=== PATIENT | female | born 1965 | race African-American/Black ===

== ENCOUNTER 2019-11-09 10:13 | Emergency (ER) | payer SELFPAY ==
[2019-11-09 11:18] LABS: Absolute Lymphocytes (CBC) 1.9 K/uL (0.7-4.9); Basophils % 0.7 % (0-1.3); Hematocrit 39.6 % (36.0-45.0); Lymphocytes % 35.8 % (15.3-44.8); MPV 9.7 fL (7.6-11.3); RBC Red Blood Cell Count 4.36 M/uL (3.86-4.86)
[2019-11-09 11:20] LABS: Protime INR 0.91
[2019-11-09 11:25] LABS: ALT/SGPT 18 U/L (12-78); AST/SGOT 15 U/L (15-37); Albumin 3.4 g/dL (3.4-5.0); Alkaline Phosphatase 134 U/L (45-117); BUN Blood Urea Nitrogen 13 mg/dL (7-18); Bicarbonate 28 mmol/L (21-32); Bilirubin Direct 0.1 mg/dL (0-0.2); Bilirubin Total 0.5 mg/dL (0.2-1.0); Glucose Level 104 mg/dL (74-106); Potassium 3.9 mmol/L (3.5-5.1); Protein, Total 7.3 g/dL (6.4-8.2); Sodium Level 144 mmol/L (136-145)
[2019-11-09] MEDS ORDERED: LORazepam 2 MG/ML VIAL ONE (11:42)
[2019-11-09] MEDS ORDERED: lisinopriL 10 MG TAB ONE (12:10)
[2019-11-09 13:28] LABS: Barbiturates NEGATIVE (NEGATIVE); Benzodiazepines NEGATIVE (NEGATIVE); Cocaine POSITIVE (NEGATIVE); METHAMPHETAM NEGATIVE (NEGATIVE); Methadone NEGATIVE (NEGATIVE); Opiates NEGATIVE (NEGATIVE); Phencyclidine NEGATIVE (NEGATIVE); THC Cannibis NEGATIVE (NEGATIVE)
[2019-11-09 14:03] LABS: Urine Blood NEGATIVE (NEG); Urine Glucose NEGATIVE (NEG); Urine Protein NEGATIVE (NEG)
--- NOTE | 2019-11-09 17:04 | ER ---
Nurse's Notes [facility] Sandip Name: Howard Clarke Age: 54 yrs Sex: Female : 1965 Arrival Date: 11/09/2019 Time: 10:16 Bed 17 Private MD: Diagnosis: Suicidal ideations Presentation: 11/08 10:41 Chief complaint: Patient states: " My fiance 2 days ago and I didn't find ph out until yesterday. I'm having a hard time dealing with it and I just want to go be with him." Pt tearful and cooperative, reports that her plan is to overdose on pills and not wake up, also states that she did have near attempt approx 5 years ago when her mother , was planning to take pills then as well. Coronavirus screen: Patient denies a cough. Patient denies shortness of breath or difficulty breathing. Patient denies measured and/or subjective temperature greater than 100.4F prior to today's visit. Patient denies travel on a cruise ship or to a country the [facility] currently lists as an affected area. Patient denies contact with known and/or suspected case of COVID-19. Ebola Screen: No symptoms or risks identified at this time. Initial Sepsis Screen: Does the patient meet any 2 criteria? No. Patient's initial sepsis screen is negative. Does the patient have a suspected source of infection? No. Patient's initial sepsis screen is negative. Risk Assessment: Do you want to hurt yourself or someone else? Patient reports desire/thoughts of hurting themselves or someone else. Provider notified. Onset of symptoms was November 09, 2019. 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 - Social history:: Smoking status: Patient denies any tobacco usage or history of. Patient uses alcohol, occasionally. last drank beer last night. street drugs, cocaine. Screenin:47 Abuse screen: Denies threats or abuse. Denies injuries from another. Nutritional ph screening: No deficits noted. Tuberculosis screening: No symptoms or risk factors identified. Fall Risk None identified. Assessment: 10:30 General: Appears in no apparent distress. Behavior is cooperative, crying. Pain: Denies ah pain. Neuro: Level of Consciousness is awake, alert, obeys commands, Oriented to person, place, time, situation. Cardiovascular: Heart tones S1 S2 present Capillary refill < 3 seconds Patient's skin is warm and dry. Respiratory: Airway is patent Respiratory effort is even, unlabored, Respiratory pattern is regular, symmetrical, Breath sounds are clear bilaterally. GI: No signs and/or symptoms were reported involving the gastrointestinal system. Abdomen is obese, Bowel sounds present X 4 quads. : No signs and/or symptoms were reported regarding the genitourinary system. EENT: No signs and/or symptoms were reported regarding the EENT system. Derm: No signs and/or symptoms reported regarding the dermatologic system. Musculoskeletal: No signs and/or symptoms reported regarding the musculoskeletal system. 12:06 Reassessment: Pt given lisinopril per order. Pt sitting on side of the bed, tray given ah to pt. 13:00 Reassessment: Pt walked to the bathroom with tech and was able to give urine sample. ah 13:57 Reassessment: pt ate and has tolerated medication with no problem. Blood pressure is ah coming down. Pt is asymptomatic.185/95. 14:14 Reassessment: Spoke with Beatriz at [facility] whom states that all psych beds ss are at capacity. 15:00 Reassessment: Patient and/or family updated on plan of care and expected duration. Pain ah level reassessed. pt lying in bed with eyes closed and resp even and unlabored. No distress noted. No needs voiced at this time. 16:00 Reassessment: No changes from previously documented assessment. 17:00 Reassessment: Tray provided to Pt. Pt sat on side of bed and ate her food. No needs ah voiced at this time. Awaiting acceptance at this time. 18:00 Reassessment: No distress noted. Pt lying in bed with eyes closed and resp even and ah unlabored. No needs voiced at this time. 19:00 Reassessment: No changes from previously documented assessment. ah 20:36 Reassessment: No changes from previously documented assessment. Patient and/or family ah updated on plan of care and expected duration. Pain level reassessed. Pt continues to sleep with eyes closed and resp even and unlabored. Continue to await acceptance to another facility with psych services. 22:00 Reassessment: Patient appears in no apparent distress at this time. Patient and/or vc family updated on plan of care and expected duration. Pain level reassessed. Patient laying on right side with eyes closed. Chest rising and falling equally. 23:00 Reassessment: Patient appears in no apparent distress at this time. Patient and/or vc family updated on plan of care and expected duration. Pain level reassessed. Patient laying on her back with eyes closed, chest rising and falling equally, patient resting comfortably. 11/09 00:00 Reassessment: Patient appears in no apparent distress at this time. Patient and/or vc family updated on plan of care and expected duration. Pain level reassessed. 01:19 Reassessment: Patient appears in no apparent distress at this time. Patient and/or vc family updated on plan of care and expected duration. Pain level reassessed. Patient is alert, oriented x 3, equal unlabored respirations, skin warm/dry/pink. patient ambulated to bathroom. 01:51 Reassessment: Patient sitting up in bed eating a sandwich and drinking a soda. vc 02:07 Reassessment: Patient appears in no apparent distress at this time. pt quiet, resting sg in bed with eyes open, even unlabored respirations observed at this time, a [facility] is with pt for safety per hospital policy. 03:00 Reassessment: Patient appears in no apparent distress at this time. Patient and/or sg family updated on plan of care and expected duration. Pain level reassessed. 04:00 Reassessment: Patient appears in no apparent distress at this time. Patient and/or sg family updated on plan of care and expected duration. Pain level reassessed. 05:00 Reassessment: Patient appears in no apparent distress at this time. Patient is alert, sg oriented x 3, equal unlabored respirations, skin warm/dry/pink. 06:00 Reassessment: this pt continues to wait for a transfer to a psych facility, reports sg sleeping well throughout the night, feeling well rested today, but still has plans to harm herself at this time. 06:39 Reassessment: Patient appears in no apparent distress at this time. pt updated on sg transfer status, still pending, informed a diet tray has been ordered for breakfast, pt stated understanding, will continue to monitor. 08:00 Reassessment: Patient appears in no apparent distress at this time. Patient and/or em family updated on plan of care and expected duration. Pain level reassessed. pt awake and does not have any needs at this time. 13:29 Reassessment: Patient appears in no apparent distress at this time. Patient and/or em family updated on plan of care and expected duration. Pain level reassessed. Patient is alert, oriented x 3, equal unlabored respirations, skin warm/dry/pink. eating lunch tray, tolerated well. 14:46 Reassessment: pt restless and hearing voices that are telling her things, Dr. Montes em notified, [facility] notified and request medication list. 15:15 Reassessment: pt wants to add her aunt Lynette Gongora - [phone] to contact em information, registration staff notified. 15:20 Reassessment: pt facetimed with [facility] screener, states she recommends inpatient, em provider notified. 17:45 Reassessment: Patient appears in no apparent distress at this time. Patient and/or em family updated on plan of care and expected duration. Pain level reassessed. Patient is alert, oriented x 3, equal unlabored respirations, skin warm/dry/pink. 19:45 Reassessment: Patient appears in no apparent distress at this time. Patient and/or mg2 family updated on plan of care and expected duration. Pain level reassessed. Patient is alert, oriented x 3, equal unlabored respirations, skin warm/dry/pink. 20:45 Reassessment: Patient appears in no apparent distress at this time. mg2 21:46 Reassessment: sitter at bedside. inpatient bed provided. mg2 22:50 Reassessment: Patient appears in no apparent distress at this time. patient sleeping. rv sitter at bedside. 23:55 Reassessment: Patient appears in no apparent distress at this time. rv 11/10 00:56 Reassessment: Patient appears in no apparent distress at this time. sitter at bedside. mg2 01:40 Reassessment: report given to Manish of [facility]. patient informed about the mg2 plan. 03:12 Reassessment: report given to EMS. patient in good condition,. iv out. patient in mg2 good condition. Psych: 11/08 10:52 Subjective: Patient's mood is sad, hopeless, Delusions are denied, Hallucinations are ph denied Having thoughts of suicide. Plan for suicide is overdose on pills. Objective: Patient is cooperative, Speech is normal, Affect is appropriate. Interventions: Removed personal items and placed in bag. Patient placed in hospital gown. Urine collected and sent for urine drug test. Belonging list filled out. Suicide Risk Assessment: Sad Person Scale: Sex of patient: Female: Score 0 points. Age of patient: Score 0 point if patient falls outside of specified age parameters. Depression: Score 1 point if signs of depression are present. Previous Attempt: Score 1 point if patient has previously attempted suicide. Substance Abuse: Score 1 point if patient abuses alcohol or drugs. Rational Thinking: Score 0 point if patient has rational thinking. Social Support: Score 1 point if social support is lacking and/or unavailable. Organized Plan: Score 1 point if patient had a plan in place. Relationship: Score 1 point if patient is , , , or for a single male Chronic Sickness: Score 0 point if patient does not have a chronic illness, debilitating, or severe disorder. TOTAL POINTS: If total points are 5-6, proposed clinical action is to strongly consider hospitalization, depending upon confidence in the follow-up arrangement. Implement suicide precautions. Safety Checks: Personal items have been removed. Door is open. Patient uses of beer, " a couple times a week" Last use was last night. Patient does not have a history of DTs. Patient uses cocaine, Last use was last night. Commitment: Patient will be a voluntary commitment. Vital Signs: 10:41 BP 192 / 124; Pulse 71; Resp 18; Temp 98.5; Pulse Ox 98% on R/A; Weight 70.31 kg; ph Height 5 ft. 1 in. (154.94 cm); 11:59 BP 183 / 123; ah 12:30 BP 165 / 99; ah 14:21 BP 140 / 80; Pulse 90; Resp 16; Temp 97.6(O); Pulse Ox 100% ; lt1 15:48 BP 129 / 94; ah 20:39 BP 135 / 63; Pulse 73; Resp 15; Pulse Ox 100% ; ah 11/09 00:00 BP 115 / 77; Pulse 78; Resp 16; Pulse Ox 100% on R/A; sg 04:00 BP 132 / 66; Pulse 72; Resp 16; Temp 97.6; Pulse Ox 100% on R/A; sg 08:02 BP 185 / 110; Pulse 74; Resp 16; Pulse Ox 100% on R/A; dh3 08:06 Temp 98.2(O); dh3 15:14 BP 163 / 103; em 04 01:36 BP 159 / 96; Pulse 76; Resp 18; Temp 98.4; Pulse Ox 100% on R/A; mg2 11/08 10:41 Body Mass Index 29.29 (70.31 kg, 154.94 cm) ph ED Course: 11/08 10:16 Patient arrived in ED. am2 10:18 Guido Mann PA is PHCP. [facility] 10:19 Abel West MD is Attending Physician. jmm 10:47 Triage completed. ph 10:50 Arm band placed on Patient placed in an exam room. ph 10:55 Patient has correct armband on for positive identification. Placed in gown. Bed in low ph position. Call light in reach. Side rails up X 1. Noise minimized. Warm blanket given. Verbal reassurance given. 10:58 Initial lab(s) drawn, by ne, sent to lab. Inserted saline lock: 22 gauge in right dh3 antecubital area, using aseptic technique. Blood collected. 11:02 EKG done, by wet process technician. reviewed by Guido VASQUEZ. at1 11:26 Elisha Calderón, RN is Primary Nurse. ph 13:47 faxed patient records to the following facilities in attempt to transfer the patient; [facility], [facility], [facility] ; [facility]; [facility]; [facility] [place]; [facility], [facility], [facility], [facility]. 17:36 PHCP role handed off by Guido Mann PA cp 17:36 Chito Knutson PA is PHCP. cp 19:28 Primary Nurse role handed off by Elisha Calderón RN sg 20:31 Heike Mcdaniel RN is Primary Nurse. 11/09 02:06 Primary Nurse role handed off by Heike Mcdaniel RN sg 02:06 Jhonatan Gomez RN is Primary Nurse. sg 02:06 Report received from Joan Arvizu RN. sg 04:26 Attending Physician role handed off by Abel West MD michelle 04:26 Chito Franco MD is Attending Physician. michelle 10:11 Attending Physician role handed off by Chito Franco MD kdr 10:11 Moshe Montes MD is Attending Physician. kdr 10:22 Primary Nurse role handed off by Jhonatan Gomez RN dmKatty 11:08 Ward Mcguire RN is Primary Nurse. em 23:05 refaxed patients record to [facility] facility. ar5 23:30 Called [facility] to confirm that the facility received the clinical's. facility ar5 confirmed and chart is up for review. 11/10 00:56 No provider procedures requiring assistance completed. mg2 01:28 [facility] called to do a nurse to nurse. Teodora Scott is taking report. ar5 03:11 IV discontinued, intact, bleeding controlled, No redness/swelling at site. Pressure mg2 dressing applied. Administered Medications: 11/08 11:45 Drug: Ativan 1 mg Route: IVP; Site: right antecubital; ah 12:45 Follow up: Response: No adverse reaction ah 17:35 Follow up: Response: No adverse reaction; Blood pressure is lowered ah 12:06 Drug: Lisinopril 10 mg Route: PO; ah 20:38 Follow up: Response: No adverse reaction 11/09 14:55 Drug: Valium 2 mg Route: PO; em 16:00 Follow up: Response: No adverse reaction; Marked relief of symptoms em Outcome: 11/08 17:02 ER care complete, transfer ordered by . angelina 11/10 03:11 Transferred by ground EMS to other acute care facility: [facility]. Transfer mg2 form completed. Condition: stable Instructed on the need for transfer, Demonstrated understanding of instructions. 03:14 Patient left the ED. mg2 Signatures: Mayra Saucedo RN RN dm5 Jhonatan Gomez RN Chito Andrade MD MD cha Rittger, Kevin, MD MD [facility] Guido Mann PA PA jmm Munoz, Edgar, RN SANGITA em Brianna Estrada RN RN Rehana Casey, liaison planner EKG Tat1 Elisha Calderón RN RN ph Zenia, CHRISTINA Dale cp Gordon, Rehana am2 Hansa Malodnado 3 Eden Wilkins Michele, RN RN [facility] [address] RN SANGITA Jennie Austin ar Vero Reynoso 1 Joan Arvizu RN RN vc Harris, Amy RN SANGITA Corrections: (The following items were deleted from the chart) 11/08 10:47 10:41 BP 162 / 124; Pulse 71bpm; Resp 18bpm; Pulse Ox 98% RA; Temp 98.5F; 70.31 kg; ph Height 5 ft. 1 in.; BMI: 29.2; ph 11/10 02:14 11/09 23:05 rexed patients record to [facility] ar5 ar5
--- NOTE | 2019-11-09 17:04 | EDPHYS ---
Physician Documentation [facility] Name: Howard Clarke Age: 54 yrs Sex: Female : 1965 Arrival Date: 11/09/2019 Time: 10:16 Bed 17 Private MD: ED Physician Moshe Montes HPI: 11/08 10:55 This 54 yrs old Black Female presents to ER via Ambulatory with complaints of Suicidal jmm Ideation. 10:55 The patient presents to the emergency department with suicide ideation, and the patient jmm has a plan, to overdose with medications. Onset: The symptoms/episode began/occurred today. 10:58 Past psychiatric history: Psychiatric medications include: Zoloft, risperidal, jmm trazadone. Associated signs and symptoms: Pertinent negatives: fever. This is a 54 year old female with a history of bipolar disorder, depression, HTN that presents to the ED with Suicidal ideation and plan to ingest all her rx pills. Patient states she learned yesterday her fiance had . Patient admits to ingesting cocaine and etoh last night but states she does used cocaine or etoh regularly. Patient is a patient of [facility] and was advised to go to the ED. . 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 - Social history:: Smoking status: Patient denies any tobacco usage or history of. Patient uses alcohol, occasionally. last drank beer last night. street drugs, cocaine. ROS: 10:58 Constitutional: Negative for fever, chills, and weight loss, Cardiovascular: Negative jmm for chest pain, palpitations, and edema, Respiratory: Negative for shortness of breath, cough, wheezing, and pleuritic chest pain. 10:58 Psych: Positive for anxiety, depression, drug dependence, suicidal ideation. 10:58 All other systems are negative. Exam: 10:58 Head/Face: atraumatic. Eyes: EOMI, no conjunctival erythema appreciated ENT: Moist [facility] Mucus Membranes Neck: Trachea midline, Supple Chest/axilla: Normal chest wall appearance and motion. Cardiovascular: Regular rate and rhythm. No edema appreciated Respiratory: Normal respirations, no respiratory distress appreciated Abdomen/GI: Non distended, soft 10:58 Back: Normal ROM Skin: General appearance color normal MS/ Extremity: Moves all extremities, no obvious deformities appreciated, no edema noted to the lower extremities Neuro: Awake and alert, normal gait 10:58 Constitutional: The patient appears alert, awake, anxious. 10:58 Psych: Behavior/mood is pleasant, cooperative, anxious, suicidal. Vital Signs: 10:41 BP 192 / 124; Pulse 71; Resp 18; Temp 98.5; Pulse Ox 98% on R/A; Weight 70.31 kg; ph Height 5 ft. 1 in. (154.94 cm); 11:59 BP 183 / 123; ah 12:30 BP 165 / 99; ah 14:21 BP 140 / 80; Pulse 90; Resp 16; Temp 97.6(O); Pulse Ox 100% ; lt1 15:48 BP 129 / 94; ah 20:39 BP 135 / 63; Pulse 73; Resp 15; Pulse Ox 100% ; ah 11/09 00:00 BP 115 / 77; Pulse 78; Resp 16; Pulse Ox 100% on R/A; sg 04:00 BP 132 / 66; Pulse 72; Resp 16; Temp 97.6; Pulse Ox 100% on R/A; sg 08:02 BP 185 / 110; Pulse 74; Resp 16; Pulse Ox 100% on R/A; dh3 08:06 Temp 98.2(O); dh3 15:14 BP 163 / 103; em 11/10 01:36 BP 159 / 96; Pulse 76; Resp 18; Temp 98.4; Pulse Ox 100% on R/A; mg2 11/08 10:41 Body Mass Index 29.29 (70.31 kg, 154.94 cm) ph MDM: 11/08 10:36 Patient medically screened. [facility] 17:02 Data reviewed: vital signs, nurses notes. Counseling: I had a detailed discussion with [facility] the patient and/or guardian regarding: the historical points, exam findings, and any diagnostic results supporting the discharge/admit diagnosis, the need to transfer to another facility, for higher level of care, [facility] does not immediately have the required specialist. 11/08 10:36 Order name: Acetaminophen; Complete Time: 11:26 [facility] 11/08 10:36 Order name: Basic Metabolic Panel; Complete Time: 11:26 [facility] 11/08 10:36 Order name: CBC with Diff; Complete Time: 11:24 [facility] 11/08 10:36 Order name: ETOH Level; Complete Time: 11:24 [facility] 11/08 10:36 Order name: Hepatic Function; Complete Time: 11:26 [facility] 11/08 10:36 Order name: PT-INR; Complete Time: 11:24 [facility] 11/08 10:36 Order name: Ptt, Activated; Complete Time: 11:24 [facility] 11/08 10:36 Order name: Salicylate; Complete Time: 11:40 [facility] 11/08 10:36 Order name: Urine Drug Screen; Complete Time: 13:43 [facility] 11/08 11:58 Order name: Troponin (emerg Dept Use Only); Complete Time: 12:22 [facility] 11/08 13:07 Order name: Urine Dipstick--Ancillary (enter results); Complete Time: 14:28 11/08 13:07 Order name: Urine --Ancillary (enter results); Complete Time: 14:28 11/08 10:36 Order name: EKG; Complete Time: 10:37 [facility] 11/08 10:36 Order name: EKG - Nurse/Tech; Complete Time: 10:58 [facility] 11/08 10:36 Order name: IV Saline Lock; Complete Time: 10:58 [facility] 11/08 10:36 Order name: Labs collected and sent; Complete Time: 10:58 [facility] 11/08 10:36 Order name: Urine Dipstick-Ancillary (obtain specimen); Complete Time: 22:00 [facility] 11/08 10:59 Order name: Diet Finger Food; Complete Time: 10:59 ph 11/09 06:25 Order name: Diet Finger Food: breakfast tray; Complete Time: 06:27 mw2 11/09 11:11 Order name: Diet Finger Food; Complete Time: 11:12 dh3 11/09 15:35 Order name: Diet Finger Food; Complete Time: 15:36 dh3 Administered Medications: 11:45 Drug: Ativan 1 mg Route: IVP; Site: right antecubital; 12:45 Follow up: Response: No adverse reaction ah 17:35 Follow up: Response: No adverse reaction; Blood pressure is lowered ah 12:06 Drug: Lisinopril 10 mg Route: PO; ah 20:38 Follow up: Response: No adverse reaction 11/09 14:55 Drug: Valium 2 mg Route: PO; em 16:00 Follow up: Response: No adverse reaction; Marked relief of symptoms em Disposition: 11/09/19 17:02 Transfer ordered to Psych Facility. Diagnosis is Suicidal ideations. - Reason for transfer: Higher level of care. - Accepting physician is DR Arevalo. - Condition is Stable. - Problem is new. - Symptoms are unchanged. Addendum: 11/14/2019 09:58 Co-signature as Attending Physician, Moshe Montes MD I agree with the assessment and k dr plan of care. Signatures: Dispatcher [employer] EDMoshe Romero MD MD [facility] Guido Mann PA PA [facility] Ward Mcguire RN RN Elisha Calderón RN RN Chito Knutson PA PA Cameron Garrett RN RN [facility] Heike Mcdaniel RN RN Corrections: (The following items were deleted from the chart) 11/08 11:12 10:58 This is a 54 year old female with a history of bipolar disorder, depression, HTN [facility] that presents to the ED with Suicidal ideation and plan to ingest all her rx pills. Patient states she learned yesterday her had . Patient is a patient of [facility] and was advised to go to the ED. . [facility] 11/10 02:51 11/08 17:02 11/09/2019 17:02 Transfer ordered to Psych Facility. Diagnosis is Suicidal cp ideations. Reason for transfer: Higher level of care. Accepting physician is Psychiatry. Condition is Stable. Problem is new. Symptoms are unchanged. [facility] 11/10 03:14 02:51 11/09/2019 17:02 Transfer ordered to Psych Facility. Diagnosis is Suicidal mg2 ideations. Reason for transfer: Higher level of care. Accepting physician is DR Arevalo. Condition is Stable. Problem is new. Symptoms are unchanged. cp
[2019-11-10] MEDS ORDERED: METHYLPREDNISOLONE 125 MG INJ ONE (02:08)
[2019-11-10] MEDS ORDERED: NA CHLORIDE 0.9% 1,000 ML ONE (02:09)
[2019-11-10] MEDS ORDERED: IPRATROPIUM BROM 0.5MG/2.5ML ONE (02:09)
[2019-11-10] MEDS ORDERED: Levofloxacin500mg IV 500 MG/100 ML BAG IV ONE (02:09)
[2019-11-10] MEDS ORDERED: LEVALBUTEROL 1.25 MG/3 ML NEB ONE (02:09)
[2019-11-10] MEDS ORDERED: FAMOTIDINE 20 MG/2 ML VIAL IV ONE (02:09)
--- NOTE | 2019-11-10 12:05 | EKG ---
Test Date: 2019-11-09 Test Time: 10:47:37 Engine Repairer Service: GWEN Joseph MEASUREMENT RESULTS: Intervals: Rate: 64 RI: 132 QRSD: 92 QT: 408 QTc: 420 [place]: P: 14 RI: 132 QRS: 59 T: 80 INTERPRETIVE STATEMENTS: Normal sinus rhythm Normal ECG Compared to ECG 11/06/2014 14:26:55 Sinus bradycardia no longer present Left ventricular hypertrophy no longer present ST (T wave) deviation no longer present Electronically Signed On 11-10-19 12:03:04 CDT by Tim Sparks
[2019-11-10] MEDS ORDERED: DIAZEPAM 2 MG TABLET ONE (14:58)
[2019-11-11 03:39] VITALS: O2SAT 100
[2019-11-11 03:49] VITALS: BP 159/96; TEMP 98.4
== END 2019-11-11 03:14 ==
LOC: ER 10:13
DX: R45.851 Suicidal ideations (principal); F31.9 Bipolar disorder, unspecified; I10 Essential (primary) hypertension
CPT/HCPCS: 36415; 80048; 80076; 80307; 80320; 80329; 81003; 81025; 84484; 85025; 85610; 85730; 93005; 96374; 99285

== ENCOUNTER 2020-03-07 14:14 | Emergency (ER) | payer SELFPAY, OTHER ==
--- OUTSIDE RECORDS SUMMARY | 2020-03-07 14:48 | XMS REPORT | Continuity of Care Document ---
:1965 Author Organization [facility] t Address [address] [place] [address] Care Team Providers Name Role Phone Unavailable Unavailable Unavailable Problems This patient has no known problems. Allergies, Adverse Reactions, Alerts This patient has no known allergies or adverse reactions. Medications This patient has no known medications. Procedures This patient has no known procedures. Results Test Description Test Time Test Comments Results Result Comments Source RPR Qualitative 2019-11-13 17:29:09 Test Item Value Reference Range Interpretation Comme nts RPR Qual (test code = RPR Qual) Non-Reactive Non-Reactive Reactive Control (test code = Reactive Control) Reactive Weak Reactive Control (test code = Weak Reactive Weak Reactive Control) Non-Reactive Control (test code = Non-Reactive Non-Reactive Control) Lot # (test code = Lot #) [id number] N Expiration Dt (test code = Expiration Dt) 1231.20 N Lipid [id number] 07:45:20 Test Item Value Reference Range Interpretation Comments Cholesterol Total 173 mg/dL 0-200 RISK OF HE ART (test code = DISEASEPublishe d by Cholesterol Total) [place] [employer] Елена lyte Optimal Borderl ine Increased RiskC HOL <200 200-239 >2 40TRIG <150 150-199 >2 00HDL Male >60 <40H DL Female >60 <5 0LDL <100 130-159 >1 60LDL Near optimal is 100-129 Triglycerides (test 105 mg/dL 9-200 code = Triglycerides) HDL (test code = HDL) 55 mg/dL 50-60 LDL (test code = LDL) 97 mg/dL 0-130 The eq uation being used in this calcula tion is LDL = (Chol - H DL) - (Trig / 5) VLDL (test code = 21 mg/dL 5-40 The equati on being used VLDL) in this calcula tion is VLDL = Trig / 5 Chol/HDL (test code = 3.1 ratio 0.0-4.4 Chol/HDL) LDL/HDL Ratio (test 2 N The equa tion being used code = LDL/HDL Ratio) in thi s calculation is LDL/HDL Ratio=L DL Calc/HDL Chol Thyroid Stimulating [id number] 07:45:20 Test Item Value Reference Range Interpretation Comments TSH (test code = TSH) 1.250 mIU/mL 0.270-4.200 Hemoglobin [id number] 07:01:24 Test Item Value Reference Range Interpretation Comments Hemoglobin A1c (test code 5.5 % 4.8-5.9 No n Diabetic = Hemoglobin A1c) 4.8-5.9%Di abetic <7.0%
[2020-03-07 16:14] LABS: Protime INR 0.96
[2020-03-07 16:25] LABS: Basophils % 1.1 % (0-1.3); Hematocrit 41.5 % (36.0-45.0); Lymphocytes % 37.6 % (15.3-44.8); MPV 10.6 fL (7.6-11.3); RBC Red Blood Cell Count 4.64 M/uL (3.86-4.86)
[2020-03-07 16:28] LABS: ALT/SGPT 16 U/L (12-78); AST/SGOT 22 U/L (15-37); Albumin 3.9 g/dL (3.4-5.0); Alkaline Phosphatase 126 U/L (45-117); BUN Blood Urea Nitrogen 15 mg/dL (7-18); Bicarbonate 28 mmol/L (21-32); Bilirubin Direct 0.2 mg/dL (0-0.2); Bilirubin Total 0.8 mg/dL (0.2-1.0); Glucose Level 86 mg/dL (74-106); Protein, Total 8.4 g/dL (6.4-8.2); Sodium Level 139 mmol/L (136-145)
[2020-03-07 16:28] LABS: Barbiturates NEGATIVE (NEGATIVE); Benzodiazepines NEGATIVE (NEGATIVE); Cocaine POSITIVE (NEGATIVE); METHAMPHETAM POSITIVE (NEGATIVE); Methadone NEGATIVE (NEGATIVE); Opiates NEGATIVE (NEGATIVE); Phencyclidine NEGATIVE (NEGATIVE); THC Cannibis NEGATIVE (NEGATIVE)
--- NOTE | 2020-03-07 16:52 | ER ---
Nurse's Notes [facility] Name: Howard Clarke Age: 54 yrs Sex: Female : 1965 Arrival Date: 03/07/2020 Time: 14:27 Bed 19 Private MD: Diagnosis: Suicidal ideations;Multisubstance abuse;Alcohol abuse;Adjustment disorder with depressed mood Presentation: 03/07 14:16 Chief complaint: EMS states: Pt. is 54. yrs., c/o increased heart rate, pt. has been rb1 drinking today and is intoxicated. Pt. reports taking two unknown pills but she thinks they were Xanax. Tested positive for COVID last . History of HTN, has not taken her BP meds, but has been taking her sister's Metoprolol. NKDA. BP 143/88, P 90, O2 97%, BGL 90. Coronavirus screen: Positive COVID results on . Ebola Screen: Patient denies travel to an Ebola-affected area in the 21 days before illness onset. Onset of symptoms was March 07, 2020. 14:16 Method Of Arrival: EMS: [place] [id number] 14:16 Initial Sepsis Screen: Does the patient meet any 2 criteria? RR > 20 per min. HR > 90 rb1 bpm. Does the patient have a suspected source of infection? No. Patient's initial sepsis screen is negative. Risk Assessment: Do you want to hurt yourself or someone else? Patient reports no desire to harm self or others. 14:16 Acuity: OBDULIO 2 mg2 Triage Assessment: 14:16 General: Appears in no apparent distress. comfortable, Behavior is calm, cooperative. rb1 Pain: Complains of pain in left low back Pain radiates to left leg Pain currently is 10 out of 10 on a pain scale. Neuro: Level of Consciousness is awake, alert, obeys commands, Oriented to person, place, time, situation. Cardiovascular: Capillary refill < 3 seconds. Respiratory: Airway is patent Respiratory effort is even, unlabored, Respiratory pattern is regular, symmetrical. Derm: Skin is dry, Skin is normal, Skin temperature is warm. 14:16 General: Pt. reports that she used cocaine last night.. 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 - Social history:: Smoking status: unknown. Screenin:16 Abuse screen: Denies threats or abuse. Nutritional screening: No deficits noted. rb1 Tuberculosis screening: No symptoms or risk factors identified. Fall Risk None identified. Assessment: 14:16 General: See triage assessment. rb1 15:15 Reassessment: Patient appears in no apparent distress at this time. No changes from rb1 previously documented assessment. 16:15 Reassessment: Patient appears in no apparent distress at this time. Patient and/or rb1 family updated on plan of care and expected duration. Pain level reassessed. Patient is alert, oriented x 3, equal unlabored respirations, skin warm/dry/pink. 17:12 Reassessment: Patient appears in no apparent distress at this time. Patient and/or rb1 family updated on plan of care and expected duration. Pain level reassessed. Patient is alert, oriented x 3, equal unlabored respirations, skin warm/dry/pink. 18:12 Reassessment: Patient appears in no apparent distress at this time. No changes from rb1 previously documented assessment. 19:10 Reassessment: Spoke with Percy at [facility]. He requested an email address so he could rb1 send his recommendation and he requested that we send the medical records. 20:00 Reassessment: patient said she has suicidal ideation and she has lack support at home, mg2 been depressed and bothered with her current relationship. 22:14 Reassessment: patient spoke to [facility] thru audiocall and recommended that patient mg2 will go inpatient in a psych facility. 23:49 Reassessment: patient denies any suicidal thoughts right now. mg2 23:50 Reassessment: meal given. patient complained of left back pain. mg2 03/08 01:37 Reassessment: Patient appears in no apparent distress at this time. Patient and/or mg2 family updated on plan of care and expected duration. Pain level reassessed. Patient is alert, oriented x 3, equal unlabored respirations, skin warm/dry/pink. 06:07 Reassessment: awaiting acceptance from mental health facility. General: Appears rv comfortable, Behavior is calm, cooperative. Neuro: Level of Consciousness is awake, alert, obeys commands, Oriented to person, place, time, situation. Cardiovascular: Rhythm is sinus rhythm. Respiratory: Airway is patent Respiratory effort is even, unlabored. 07:00 Reassessment: Patient appears in no apparent distress at this time. Patient and/or ph family updated on plan of care and expected duration. Pain level reassessed. 08:00 Reassessment: Patient appears in no apparent distress at this time. Patient and/or ph family updated on plan of care and expected duration. Pain level reassessed. Patient is alert, oriented x 3, equal unlabored respirations, skin warm/dry/pink. 09:00 Reassessment: Patient appears in no apparent distress at this time. Patient and/or ph family updated on plan of care and expected duration. Pain level reassessed. Patient is alert, oriented x 3, equal unlabored respirations, skin warm/dry/pink. 10:00 Reassessment: Patient appears in no apparent distress at this time. Patient and/or ph family updated on plan of care and expected duration. Pain level reassessed. Patient is alert, oriented x 3, equal unlabored respirations, skin warm/dry/pink. Awaiting acceptance at psychiatric facility, sitter at bedside. 11:00 Reassessment: Patient appears in no apparent distress at this time. Patient and/or ph family updated on plan of care and expected duration. Pain level reassessed. Patient is alert, oriented x 3, equal unlabored respirations, skin warm/dry/pink. Pt states to sitter, " I feel okay now, like I am safe to go home. I'm not feeling suicidal.". 12:00 Reassessment: Patient appears in no apparent distress at this time. Patient and/or ph family updated on plan of care and expected duration. Pain level reassessed. Patient is alert, oriented x 3, equal unlabored respirations, skin warm/dry/pink. Dr Montes at bedside to speak w/ pt, pt states that she is no longer suicidal, states, " I was just having a hard time last night when I was drinking.". Psych: 03/07 14:16 Objective: Patient is cooperative, Speech is normal, Affect is appropriate. Patient rb1 uses Patient uses cocaine, Patient uses methamphetamines. Commitment: Patient will be a voluntary commitment. 14:16 Subjective: Patient's mood is Pleasant and cooperative Delusions are denied, rb1 Hallucinations are denied Having thoughts of Denies wanting to hurt self or others. Pt. did report that she does have mental illness. 22:25 Suicide Risk Assessment: Sad Person Scale: Sex of patient: Female: Score 0 points. Age mg2 of patient: Score 1 point if patient is over 65. 03/08 01:35 Interventions: Removed personal items and placed in bag. Patient placed in hospital mg2 gown. Urine collected and sent for urine drug test. Belonging list filled out. Safety Checks: Personal items have been removed. Door is open. No visitors are present at this time. Vital Signs: 03/07 14:16 BP 164 / 109; Pulse 89; Resp 18; Temp 98.1(O); Pulse Ox 100% on R/A; Weight 88.9 kg rb1 (R); Height 5 ft. 4 in. (162.56 cm) (R); Pain 10/10; 15:15 BP 187 / 118; Pulse 92; Resp 21; Pulse Ox 100% ; rb1 16:15 BP 150 / 97; Pulse 82; Resp 20; Pulse Ox 100% on R/A; rb1 17:15 BP 170 / 101; Pulse 84; Resp 26; Pulse Ox 100% ; rb1 18:15 BP 174 / 100; Pulse 83; Resp 16; Pulse Ox 99% on R/A; rb1 21:16 BP 175 / 85; Pulse 82; Resp 18; Pulse Ox 97% on R/A; mg2 22:22 BP 183 / 100; Pulse 91; Resp 18; Pulse Ox 100% on R/A; Pain 0/10; mg2 23:50 BP 175 / 97; Pulse 90; Resp 18; Pulse Ox 100% on R/A; mg2 03/08 00:35 BP 156 / 78; Pulse 89; Resp 18; Pulse Ox 100% on R/A; mg2 13:00 BP 142 / 76; Pulse 87; Resp 18; Temp 97.5; Pulse Ox 98% on R/A; ph 03/07 14:16 Body Mass Index 33.64 (88.90 kg, 162.56 cm) [facility] ED Course: 03/07 14:16 Arm band placed on right wrist. rb1 14:16 Patient has correct armband on for positive identification. Bed in low position. Call rb1 light in reach. Side rails up X 1. monitoring specialist on. Pulse ox on. NIBP on. 14:27 Patient arrived in ED. rb1 14:35 Triage completed. rb1 14:52 Moshe Montes MD is Attending Physician. kdr 15:30 Missed attempt(s): 20 gauge in right antecubital area. Bleeding controlled, band aid jp3 applied, catheter tip intact. 15:30 Initial lab(s) drawn, by oh, sent to lab. Urine collected: clean catch specimen, clear, jp3 chevy colored, Legal drug screen obtained per protocol. Patient maintains SpO2 saturation greater than 95% on room air. 16:40 Warm blanket given. Verbal reassurance given. jp3 16:40 EKG done, by ED staff, reviewed by Moshe Montes MD. jp3 16:45 Idalia Gillis, SANGITA is Primary Nurse. rb1 19:07 Attending Physician role handed off by Moshe Montes MD pkl 19:07 Rex Baker MD is Attending Physician. pkl 22:28 No provider procedures requiring assistance completed. mg2 03/08 07:37 [facility] called to let us know the patient has been placed on a waiting list they eb currently do not have any [facility] Beds at this time. 12:02 Attending Physician role handed off by Rex Baker MD kdr 12:02 Moshe Montes MD is Attending Physician. kdr 12:57 Elisha Calderón RN is Primary Nurse. ph 13:00 Patient did not have IV access during this emergency room visit. ph Administered Medications: 03/07 23:32 Drug: Tylenol 1000 mg Route: PO; mg2 03/08 06:07 Follow up: Response: No adverse reaction rv 06:07 Drug: Ibuprofen 600 mg Route: PO; rv 10:02 Follow up: Response: No adverse reaction ph 12:49 Drug: predniSONE 60 mg Route: PO; ph 12:56 Follow up: Response: No adverse reaction ph 12:49 Drug: traMADol 50 mg Route: PO; ph 12:56 Follow up: Response: No adverse reaction; RASS: Alert and Calm (0) ph 12:49 Drug: Ibuprofen 600 mg Route: PO; ph 12:56 Follow up: Response: No adverse reaction ph Outcome: 03/07 16:51 ER care complete, transfer ordered by . kdr 03/08 12:22 Discharge ordered by . kdr 13:17 Patient left the ED. ph 13:17 Discharged to home ambulatory, with family. ph 13:17 Condition: good 13:17 Discharge instructions given to patient, Instructed on discharge instructions, follow up and referral plans. medication usage, Demonstrated understanding of instructions, follow-up care, medications, Prescriptions given X 2. Signatures: Rex Baker MD MD pkMoshe Haile MD MD kdr Hall, Patricia, RN RN ph Idalia Gillis RN RN rb1 Eden Wilkins Michele RN RN mg2 [address] RN RN rv Higinio Pereira jp3 Corrections: (The following items were deleted from the chart) 03/07 22:15 14:16 Acuity: OBDULIO 3 rb1 mg2
--- NOTE | 2020-03-07 16:52 | EDPHYS ---
Physician Documentation [facility] Name: Howard Clarke Age: 54 yrs Sex: Female : 1965 Arrival Date: 03/07/2020 Time: 14:27 Bed 19 Private MD: ED Physician Moshe Montes HPI: 03/07 15:21 This 54 yrs old Black Female presents to ER via EMS with complaints of Increased heart kdr rate. 15:21 The patient presents with a history of heart racing. Context: The symptoms occur at kdr rest, during sleep, with stress, The patient states that she was drank a 24 pack and a bottle of liquor last night. She also did cocaine and took what she thought was "bars." She has contineiuned to have palpitations today and also states that due to her family problems and issues, she has been suicidal without a plan. States that last time she was here, she was snet to [facility]. . 18:11 Onset: The symptoms/episode began/occurred last night. Duration: The patient or kdr guardian reports multiple episodes, that are intermittent, that wax and wane, with no pattern. Modifying factors: The symptoms are aggravated by nothing. anxiety, stress, substance abuse The symptoms are alleviated by nothing. Associated signs and symptoms: Pertinent positives: anxiety, SOB, vomiting. Severity of symptoms: At their worst the symptoms were mild moderate last night. The patient has experienced similar episodes in the past, a few times. The patient has not recently seen a physician. 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 - Social history:: Smoking status: unknown. ROS: 18:11 Constitutional: Negative for fever, chills, and weight loss, Eyes: Negative for injury, kdr pain, redness, and discharge, Neck: Negative for injury, pain, and swelling, Respiratory: Negative for shortness of breath, cough, wheezing, and pleuritic chest pain, Abdomen/GI: Negative for abdominal pain, nausea, vomiting, diarrhea, and constipation, Back: Negative for injury and pain, : Negative for injury, bleeding, discharge, and swelling, MS/Extremity: Negative for injury and deformity, Skin: Negative for injury, rash, and discoloration, Neuro: Negative for headache, weakness, numbness, tingling, and seizure activity. Psych: Negative for depression, anxiety, suicide ideation, homicidal ideation, and hallucinations, Allergy/Immunology: Negative for hives, rash, and allergies, Endocrine: Negative for neck swelling, polydipsia, polyuria, polyphagia, and marked weight changes, Hematologic/Lymphatic: Negative for swollen nodes, abnormal bleeding, and unusual bruising. 18:11 Cardiovascular: Positive for chest pain, palpitations. Exam: 18:11 Constitutional: This is a well developed, well nourished patient who is awake, alert, kdr and in no acute distress. Head/Face: Normocephalic, atraumatic. Eyes: Pupils equal round and reactive to light, extra-ocular motions intact. Lids and lashes normal. Conjunctiva and sclera are non-icteric and not injected. Cornea within normal limits. Periorbital areas with no swelling, redness, or edema. Neck: Trachea midline, no thyromegaly or masses palpated, and no cervical lymphadenopathy. Supple, full range of motion without nuchal rigidity, or vertebral point tenderness. No Meningismus. Chest/axilla: Normal chest wall appearance and motion. Nontender with no deformity. No lesions are appreciated. Cardiovascular: Regular rate and rhythm with a normal S1 and S2. No gallops, murmurs, or rubs. Normal PMI, no JVD. No pulse deficits. Respiratory: Lungs have equal breath sounds bilaterally, clear to auscultation and percussion. No rales, rhonchi or wheezes noted. No increased work of breathing, no retractions or nasal flaring. Abdomen/GI: Soft, non-tender, with normal bowel sounds. No distension or tympany. No guarding or rebound. No evidence of tenderness throughout. Back: No spinal tenderness. No costovertebral tenderness. Full range of motion. Skin: Warm, dry with normal turgor. Normal color with no rashes, no lesions, and no evidence of cellulitis. MS/ Extremity: Pulses equal, no cyanosis. Neurovascular intact. Full, normal range of motion. Neuro: Awake and alert, GCS 15, oriented to person, place, time, and situation. Cranial nerves II-XII grossly intact. Motor strength 5/5 in all extremities. Sensory grossly intact. Cerebellar exam normal. Normal gait. 18:11 Psych: Behavior/mood is pleasant, cooperative, suicidal, depressed, Affect is flat, animated, Oriented to person, place, time, Patient having thoughts of suicide. Denies suicidal plan. Delusions/hallucinations are not present. 18:37 ECG was reviewed by the Attending Physician. kdr Vital Signs: 14:16 BP 164 / 109; Pulse 89; Resp 18; Temp 98.1(O); Pulse Ox 100% on R/A; Weight 88.9 kg rb1 (R); Height 5 ft. 4 in. (162.56 cm) (R); Pain 10/10; 15:15 BP 187 / 118; Pulse 92; Resp 21; Pulse Ox 100% ; rb1 16:15 BP 150 / 97; Pulse 82; Resp 20; Pulse Ox 100% on R/A; rb1 17:15 BP 170 / 101; Pulse 84; Resp 26; Pulse Ox 100% ; rb1 18:15 BP 174 / 100; Pulse 83; Resp 16; Pulse Ox 99% on R/A; rb1 21:16 BP 175 / 85; Pulse 82; Resp 18; Pulse Ox 97% on R/A; mg2 22:22 BP 183 / 100; Pulse 91; Resp 18; Pulse Ox 100% on R/A; Pain 0/10; mg2 23:50 BP 175 / 97; Pulse 90; Resp 18; Pulse Ox 100% on R/A; mg2 08 00:35 BP 156 / 78; Pulse 89; Resp 18; Pulse Ox 100% on R/A; mg2 13:00 BP 142 / 76; Pulse 87; Resp 18; Temp 97.5; Pulse Ox 98% on R/A; ph 03/07 14:16 Body Mass Index 33.64 (88.90 kg, 162.56 cm) rb1 MDM: 03/07 16:51 Patient medically screened. kdr 18:14 Data reviewed: vital signs, nurses notes, lab test result(s), radiologic studies. kdr Counseling: I had a detailed discussion with the patient and/or guardian regarding: the historical points, exam findings, and any diagnostic results supporting the discharge/admit diagnosis, lab results, radiology results, the need to transfer to another facility. 21:12 ED course: Patient evaluated by [facility] screener. Recommend inpatient pk treatment. Talked to patient if she still has suicidal ideations. Patient said she still has suicidal ideations and would like to be transferred to psychiatric facility. 03/08 06:06 ED course: Patient complaining of back pain. Told patient we are still waiting [facility] facility to call us availability for transfer Patient understand the situation. 12:17 ED course: have re-evaluated patient. She is no longer suicidal. On her initial kdr evaluation, she was mild. She was ending a relationship and the X "set her off" which caused her to go on drinking binge. She states that the relationship is over and behind her. She also states that she she has the support of her immediate family in recovery. They have been involved with checking on her since she was admitted. She has no SI/HI at this time and appears stable for outpatient follow-up. 03/07 15:21 Order name: Acetaminophen; Complete Time: 16:48 kdr 03/07 15:21 Order name: Basic Metabolic Panel; Complete Time: 16:48 kdr 03/07 15:21 Order name: CBC with Diff; Complete Time: 00:56 kdr 03/07 15:21 Order name: ETOH Level; Complete Time: 16:48 kdr 03/07 15:21 Order name: Hepatic Function; Complete Time: 16:48 kdr 03/07 15:21 Order name: PT-INR; Complete Time: 16:48 kdr 03/07 15:21 Order name: Ptt, Activated; Complete Time: 16:48 kdr 03/07 15:21 Order name: Salicylate; Complete Time: 16:48 kdr 03/07 15:21 Order name: Urine Drug Screen; Complete Time: 16:48 kdr 03/07 17:24 Order name: Urine Dipstick--Ancillary (enter results); Complete Time: 19:11 bd 03/07 19:34 Order name: SARS-COV-2 RT PCR; Complete Time: 20:33 EDMS 03/07 21:24 Order name: CBC Smear Scan; Complete Time: 00:56 EDMS 03/07 15:21 Order name: EKG; Complete Time: 15:22 kdr 03/07 15:21 Order name: EKG - Nurse/Tech; Complete Time: 16:45 kdr 03/07 15:21 Order name: IV Saline Lock; Complete Time: 16:25 kdr 03/07 15:21 Order name: Labs collected and sent; Complete Time: 16:25 kdr 03/07 15:21 Order name: Urine Dipstick-Ancillary (obtain specimen); Complete Time: 16:25 kdr 03/08 07:13 Order name: Diet Finger Food; Complete Time: 07:13 ph 03/08 11:18 Order name: Diet Finger Food; Complete Time: 11:18 dh3 EC/13 18:37 Rate is 82 beats/min. Rhythm is regular, Normal Sinus Rhythm with No ectopy. QRS [place] kdr is Normal. HI interval is normal. QRS interval is normal. QT interval is normal. Clinical impression: NSR w/ Non-specific ST/T Changes. Administered Medications: 23:32 Drug: Tylenol 1000 mg Route: PO; mg2 03/08 06:07 Follow up: Response: No adverse reaction rv 06:07 Drug: Ibuprofen 600 mg Route: PO; rv 10:02 Follow up: Response: No adverse reaction ph 12:49 Drug: predniSONE 60 mg Route: PO; ph 12:56 Follow up: Response: No adverse reaction ph 12:49 Drug: traMADol 50 mg Route: PO; ph 12:56 Follow up: Response: No adverse reaction; RASS: Alert and Calm (0) ph 12:49 Drug: Ibuprofen 600 mg Route: PO; ph 12:56 Follow up: Response: No adverse reaction ph Disposition: 03/08/20 12:22 Discharged to Home. Impression: Suicidal ideations, Multisubstance abuse, Alcohol abuse, Adjustment disorder with depressed mood. - Condition is Stable. - Discharge Instructions: Substance Use Disorder, Suicidal Feelings: How to Help Yourself, Alcohol Intoxication, [id number], Stress and Stress Management, Sciatica, [id number]. - Prescriptions for Ibuprofen 600 mg Oral Tablet - take 1 tablet by ORAL route every 6 hours As needed take with food; 30 tablet. Medrol (All) 4 mg Oral Tablets, Dose Pack - take 1 tablet by ORAL route as directed - follow package instructions; 1 packet. - Medication Reconciliation Form, Thank You Letter form. - Follow up: Private Physician; When: 1 - 2 days; Reason: If symptoms return, Further diagnostic work-up, Recheck today's complaints, Continuance of care, Re-evaluation by your physician. - Problem is new. - Symptoms are resolved. Signatures: Dispatcher [employer] [facility] Rex Baker MD MD pkl Rittger, Kevin, MD MD kdr Elisha Calderón RN RN ph Idalia Gillis, RN RN rb1 Cameron Garrett RN RN mg2 [address]y [address] RN RN rv Corrections: (The following items were deleted from the chart) 03/07 16:52 16:51 03/07/2020 16:51 Transfer ordered to Psych Facility. Diagnosis is Suicidal kdr ideations; Multisubstance abuse; Alcohol abuse. Reason for transfer: Higher level of care. Accepting physician is Psych MD. Condition is Fair. Problem is an acute exacerbation. Symptoms have improved. kdr 18:32 17:25 CORONAVIRUS+MR.LAB.BRZ ordered. [facility] 03/08 12:21 03/07 16:52 03/07/2020 16:51 Transfer ordered to Psych Facility. Diagnosis is Suicidal kdr ideations; Multisubstance abuse; Alcohol abuse; Adjustment disorder with depressed mood. Reason for transfer: Higher level of care. Accepting physician is Psych MD. Condition is Fair. Problem is an acute exacerbation. Symptoms have improved. kdr 03/08 13:17 12:22 03/08/2020 12:22 Discharged to Home. Impression: Suicidal ideations; ph Multisubstance abuse; Alcohol abuse; Adjustment disorder with depressed mood. Condition is Stable. Forms are Medication Reconciliation Form, Thank You Letter, Antibiotic Education, Prescription Opioid Use. Follow up: Private Physician; When: 1 - 2 days; Reason: If symptoms return, Further diagnostic work-up, Recheck today's complaints, Continuance of care, Re-evaluation by your physician. Problem is new. Symptoms are resolved. kdr
[2020-03-07 18:36] LABS: Urine Blood NEGATIVE (NEG); Urine Glucose NEGATIVE (NEG); Urine Protein NEGATIVE (NEG); Urine Specific Gravity 1.025 (1.005-1.030); Urine pH 5.5 (5.0-7.0)
[2020-03-07 21:24] LABS: Blood Morphology Comment NOT SEEN (NOT SEEN); Platelet Estimate ADEQ; White Blood Cell Scan OK
[2020-03-07] MEDS ORDERED: ACETAMINOPHEN 500 MG TAB ONE (23:41)
[2020-03-08] MEDS ORDERED: IBUPROFEN 400 MG TAB ONE ×2 (06:21→12:54)
[2020-03-08] MEDS ORDERED: IBUPROFEN 200 MG TAB PO ONE ×2 (06:21→12:54)
--- NOTE | 2020-03-08 07:09 | EKG ---
Test Date: 2020-03-07 Test Time: 16:37:37 Computer Graphic Designer: CARLOS A MEASUREMENT RESULTS: Intervals: Rate: 82 HI: 142 QRSD: 82 QT: 388 QTc: 453 [place]: P: 28 HI: 142 QRS: 61 T: 41 INTERPRETIVE STATEMENTS: Normal sinus rhythm Possible Left atrial enlargement Borderline ECG Compared to ECG 11/09/2019 10:47:37 No significant changes Electronically Signed On 03-08-20 07:08:21 CDT by Tim Sparks
[2020-03-08] MEDS ORDERED: predniSONE 20 MG TAB ONE (12:54)
[2020-03-08] MEDS ORDERED: TRAMADOL HCL 50 MG TAB ONE (12:54)
[2020-03-08 13:23] VITALS: TEMP 98.1
[2020-03-08 13:31] VITALS: O2SAT 100
[2020-03-08 13:33] VITALS: BP 156/78
== END 2020-03-08 13:17 | disposition home or self-care (01) ==
LOC: ER 14:14
DX: U07.1 COVID-19 (principal); R45.851 Suicidal ideations; F10.10 Alcohol abuse, uncomplicated; F19.10 Other psychoactive substance abuse, uncomplicated; F43.21 Adjustment disorder with depressed mood; I10 Essential (primary) hypertension
CPT/HCPCS: 36415; 80048; 80076; 80307; 80320; 80329; 81003; 85025; 85610; 85730; 93005; 99285; J7512; U0003

== ENCOUNTER 2021-01-13 21:27 | Emergency (ER) | payer OTHER, SELFPAY ==
--- OUTSIDE RECORDS SUMMARY | 2021-01-13 21:30 | XMS REPORT | Continuity of Care Document ---
:1965 Author Organization [facility] t Address [address] [place] [address] Care Team Providers Name Role Phone Dawn Almonte Attending Clinician Unavailable Dawn Almonte Attending Clinician Unavailable Dawn Almonte Admitting Clinician Unavailable Problems This patient has no known problems. Allergies, Adverse Reactions, Alerts This patient has no known allergies or adverse reactions. Medications This patient has no known medications. Procedures This patient has no known procedures. Encounters Start End Encounter Admission Attending Care Care Encounter Source Date/Time Date/Time Type Type Clinicians Facility Department ID 2020-04-09 Inpatient 1 Veto Almonte [facility] [id number] . 15:30:00 [facility] [id number] [address] [place] [address] 2020-04-09 2020-04-15 Inpatient 1 Veto Almonte [facility] [id number] 15:30:00 11:50:00 [facility] Results Test Description Test Time Test Comments Results Result Comments Source Novel Coronavirus SARS-CoV-2, PCR 2020-04-09 19:51:09 Test Item Value Reference Range Interpretation Comme nts SARS-CoV-2 PCR (test code = NEGATIVE Negative Positive results are indicative of SARS-CoV-2 PCR) active infec tion with SARS-CoV-2; clinical correl ation with patient history and oth er diagnostic information is necessary to determine patie nt infection status.Presumpt bernardo positive results -INTERPRET WITH CAUTION: Result may not reflect if patient is actually positi ve. Patient should be treated based o n clinical suspicions. Neg ative results do not preclude SARS-C oV-2 infection and should not be u sed as the sole basis for treatment o r other patient management deci sions. Negative results must be combined with clinical observ ations, patient history, and ep idemiological information.The Xpert Xpress SARS-CoV-2 test is only for use under the Food and Drug Administration s Emergency Use Authorization." Comprehensive Metabolic [id number] 17:18:23 Test Item Value Reference Range Interpretation Comments Sodium Level (test code = Sodium 140.0 mmol/L 136.0-145.0 Level) Potassium Level (test code = 4.30 mmol/L 3.50-5.10 Potassium Level) Chloride Level (test code = 109.0 mmol/L 98.0-107.0 H Chloride Level) CO2 (test code = CO2) 26 mmol/L 20-31 Anion Gap (test code = Anion 4.8 mmol/L 5.0-15.0 L Gap) BUN (test code = BUN) 13 mg/dL 9-23 Creatinine Level (test code = 1.00 mg/dL 0.55-1.02 Creatinine Level) BUN/Creat Ratio (test code = 13.0 ratio 10.0-20.0 BUN/Creat Ratio) Glucose Level (test code = 98 mg/dL 74-106 Glucose Level) Calcium Level (test code = 9.1 mg/dL 8.3-10.6 Calcium Level) Alk Phos (test code = Alk Phos) 122 U/L 46-116 H Bilirubin Total (test code = 0.2 mg/dL 0.2-1.1 Bilirubin Total) Albumin Level (test code = 4.1 g/dL 3.2-4.8 Albumin Level) Protein Total (test code = 6.4 g/dL 5.7-8.2 Protein Total) ALT (test code = ALT) 13 U/L 10-49 AST (test code = AST) 20 U/L <=34 Globulin (test code = Globulin) 2.3 g/dL 2.3-3.5 A/G Ratio (test code = A/G 1.8 g/dL 0.8-2.0 Ratio) Hemolysis (test code = 0 g/dL 1-2 Hemolysis) Icterus (test code = Icterus) 0 g/dL 1-2 Lipemia (test code = Lipemia) 0 g/dL 1-2 Comprehensive Metabolic [id number] 17:18:23 Test Item Value Reference Range Interpretation Comments Sodium Level (test 140.0 mmol/L 136.0-145.0 code = Sodium Level) Potassium Level 4.30 mmol/L 3.50-5.10 (test code = Potassium Level) Chloride Level (test 109.0 mmol/L 98.0-107.0 H code = Chloride Level) CO2 (test code = 26 mmol/L 20-31 CO2) Anion Gap (test code 4.8 mmol/L 5.0-15.0 L = Anion Gap) BUN (test code = 13 mg/dL 9-23 BUN) Creatinine Level 1.00 mg/dL 0.55-1.02 (test code = Creatinine Level) BUN/Creat Ratio 13.0 ratio 10.0-20.0 (test code = BUN/Creat Ratio) Glucose Level (test 98 mg/dL 74-106 code = Glucose Level) Calcium Level (test 9.1 mg/dL 8.3-10.6 code = Calcium Level) Alk Phos (test code 122 U/L 46-116 H = Alk Phos) Bilirubin Total 0.2 mg/dL 0.2-1.1 (test code = Bilirubin Total) Albumin Level (test 4.1 g/dL 3.2-4.8 code = Albumin Level) Protein Total (test 6.4 g/dL 5.7-8.2 code = Protein Total) ALT (test code = 13 U/L 10-49 ALT) AST (test code = 20 U/L <=34 AST) Globulin (test code 2.3 g/dL 2.3-3.5 = Globulin) A/G Ratio (test code 1.8 g/dL 0.8-2.0 = A/G Ratio) eGFR AA (test code = >60 >=60 eGFR (e stimated eGFR AA) mL/min/1.73 m2 Glomerular Filtration Rate ) is an estimated va lue, calculated from the patient's serum creatinine usin g the MDRD equation. It is NOT the patient 's actual GFR. The eGFR provides a more clinically usef ul measure of kidn ey disease than se rum creatinine alone.This calculation nazario es sex and race in to account, if the information is provided. If th e race is not provided, and t he patient is -Marquita n, multiply by 1.2 12. If sex is not provided, and t he patient is fema le, multiply by 0.7 42. Results for pat ients <18 years of ag e have not been validated by th e MDRD study and should be interpreted wit h caution. eGFR R esult Interpretation: eGFR > or = 60 is in the Normal RangeeGF R < 60 may mean kid dawn diseaseeGFR < 1 5 may mean kidney failure Rang es recommended by the National Kidney Foundation, http://nkdep.ni h.gov Hemolysis (test code 0 g/dL 1-2 = Hemolysis) Icterus (test code = 0 g/dL 1-2 Icterus) Lipemia (test code = 0 g/dL 1-2 Lipemia) Alcohol [id number] 17:18:23 Test Item Value Reference Range Interpretation Comments Ethanol Level 4.9 mg/dL N The pharmacolo gical (test code = response to blo od alcohol Ethanol Level) levels may va ry from individual to i ndividual. The fatal mayco ntration has been report ed to be >400 mg/dl. Comprehensive Metabolic [id number] 17:18:23 Test Item Value Reference Range Interpretation Comments Sodium Level (test 140.0 mmol/L 136.0-145.0 code = Sodium Level) Potassium Level 4.30 mmol/L 3.50-5.10 (test code = Potassium Level) Chloride Level (test 109.0 mmol/L 98.0-107.0 H code = Chloride Level) CO2 (test code = 26 mmol/L 20-31 CO2) Anion Gap (test code 4.8 mmol/L 5.0-15.0 L = Anion Gap) BUN (test code = 13 mg/dL 9-23 BUN) Creatinine Level 1.00 mg/dL 0.55-1.02 (test code = Creatinine Level) BUN/Creat Ratio 13.0 ratio 10.0-20.0 (test code = BUN/Creat Ratio) Glucose Level (test 98 mg/dL 74-106 code = Glucose Level) Calcium Level (test 9.1 mg/dL 8.3-10.6 code = Calcium Level) Alk Phos (test code 122 U/L 46-116 H = Alk Phos) Bilirubin Total 0.2 mg/dL 0.2-1.1 (test code = Bilirubin Total) Albumin Level (test 4.1 g/dL 3.2-4.8 code = Albumin Level) Protein Total (test 6.4 g/dL 5.7-8.2 code = Protein Total) ALT (test code = 13 U/L 10-49 ALT) AST (test code = 20 U/L <=34 AST) Globulin (test code 2.3 g/dL 2.3-3.5 = Globulin) A/G Ratio (test code 1.8 g/dL 0.8-2.0 = A/G Ratio) eGFR AA (test code = >60 >=60 eGFR (e stimated eGFR AA) mL/min/1.73 m2 Glomerular Filtration Rate ) is an estimated va lue, calculated from the patient's serum creatinine usin g the MDRD equation. It is NOT the patient 's actual GFR. The eGFR provides a more clinically usef ul measure of kidn ey disease than se rum creatinine alone.This calculation nazario es sex and race in to account, if the information is provided. If th e race is not provided, and t he patient is -Marquita n, multiply by 1.2 12. If sex is not provided, and t he patient is fema le, multiply by 0.7 42. Results for pat ients <18 years of ag e have not been validated by [facility] MDRD study and should be interpreted wit h caution. eGFR R esult Interpretation: eGFR > or = 60 is in the Normal RangeeGF R < 60 may mean kid dawn diseaseeGFR < 1 5 may mean kidney failure Rang es recommended by the National Kidney Foundation, http://nkdep.ni h.gov eGFR Non-AA (test 58.22 >=60.00 L eGFR (truman mated code = eGFR Non-AA) mL/min/1.73 m2 Glomer ular Filtration Rate ) is an estimated va lue, calculated from the patient's serum creatinine usin g the MDRD equation. It is NOT the patient 's actual GFR. The eGFR provides a more clinically usef ul measure of kidn ey disease than se rum creatinine alone.This calculation nazario es sex and race in to account, if the information is provided. If th e race is not provided, and t he patient is -Marquita n, multiply by 1.2 12. If sex is not provided, and t he patient is fema le, multiply by 0.7 42. Results for pat ients <18 years of ag e have not been validated by [facility] MDRD study and should be interpreted wit h caution. eGFR R esult Interpretation: eGFR > or = 60 is in the Normal RangeeGF R < 60 may mean kid dawn diseaseeGFR < 1 5 may mean kidney failure Rang es recommended by the National Kidney Foundation, http://nkdep.ni h.gov Hemolysis (test code 0 g/dL 1-2 = Hemolysis) Icterus (test code = 0 g/dL 1-2 Icterus) Lipemia (test code = 0 g/dL 1-2 Lipemia) HCG Qualitative [id number] 17:07:59 Test Item Value Reference Range Interpretation Comments hCG Ur (test code = Negative If the r esult is hCG Ur) "Negative" in p atients suspected to be , recom mend retest with a s ample obtained 48 to 72 hours later, or by ordering a quantitative as say. If the result i s "Borderline" te sting should be repea jerilyn in 48 to 72 hours. Lot # (test code = [id number] N Lot #) Expiration Dt (test 03/25/2021 N code = Expiration Dt) Neg Control (test Negative code = Neg Control) Pos Control (test Positive code = Pos Control) Internal QC (test Acceptable code = Internal QC) Complete Blood Count with [id number] 17:01:29 Test Item Value Reference Range Interpretation Comments WBC (test code = WBC) 6.1 x10 4.4-10.5 RBC (test code = RBC) 4.19 x10 3.75-5.20 Hgb (test code = Hgb) 12.9 g/dL 12.2-14.8 MCV (test code = MCV) 97.40 fL 80.00-100.00 Hct (test code = Hct) 40.8 % 36.5-44.4 MCHC (test code = 31.60 g/dL 32.00-37.50 L MCHC) MCH (test code = MCH) 30.8 pg 27.0-32.5 RDW CV (test code = 13.1 % 11.5-14.5 RDW CV) Platelets (test code = 195.0 x10 140.0-440.0 Platelets) MPV (test code = MPV) 11.9 fL N Slide Review (test Auto Auto Result cr eated by code = Slide Review) GL_SJM_ SLIDE_REV_AUTO nRBC (test code = 0 N nRBC) NRBC Abs (test code = 0.00 x10 N NRBC Abs) Automated [id number] 17:01:29 Test Item Value Reference Range Interpretation Comments Neutro Auto (test code = Neutro 42.9 % 36.0-70.0 Auto) Lymph Auto (test code = Lymph Auto) 44.7 % 12.0-44.0 H [place] Auto (test code = [place] Auto) 7.5 % 0.0-11.0 Eos, Auto (test code = Eos, Auto) 4.1 % 0.0-7.0 Basophil Auto (test code = Basophil 0.5 % 0.0-2.0 Auto) Neutro Absolute (test code = Neutro 2.6 x10 1.6-7.4 Absolute) Lymph Absolute (test code = Lymph 2.73 x10 .50-4.60 Absolute) [place] Absolute (test code = [place] .46 x10 .00-1.20 Absolute) Eos Absolute (test code = Eos 0.25 x10 0.00-0.74 Absolute) Baso Absolute (test code = Baso 0.03 x10 0.00-0.21 Absolute) IG [id number] 17:01:29 Test Item Value Reference Range Interpretation Comments IG (test code = IG) 0.3 % 0.0-5.0 IG Abs (test code = IG Abs) 0 x10 N Urinalysis with Microscopic if [id number] 16:52:48 Test Item Value Reference Range Interpretation Comments UA Color (test code = UA Color) YELLO Yellow UA Appear (test code = UA CLEAR Clear Appear) UA pH (test code = UA pH) 6.5 N UA Spec Grav (test code = UA 1.030 1.001-1.035 Spec Grav) UA Glucose (test code = UA NEG Negative Glucose) UA Ketones (test code = UA NEG Negative Ketones) UA Blood (test code = UA Blood) NEG Negative UA Protein (test code = UA NEG Negative Protein) UA Bili (test code = UA Bili) NEG Negative UA Urobilinogen (test code = UA .2 mg/dL >0.2 Urobilinogen) UA Nitrite (test code = UA NEG Negative Nitrite) UA Leuk Est (test code = UA NEG Negative Leuk Est) UA Micro Ind? (test code = UA Not Indicated Not Indicated Micro Ind?) RPR [id number] 17:29:09 Test Item Value Reference Range Interpretation Comments RPR Qual (test code = RPR Qual) Non-Reactive Non-Reactive Reactive Control (test code = Reactive Reactive Control) Weak Reactive Control (test Weak Reactive code = Weak Reactive Control) Non-Reactive Control (test code Non-Reactive = Non-Reactive Control) Lot # (test code = Lot #) [id number] N Expiration Dt (test code = 12.20 N Expiration Dt) Lipid [id number] 07:45:20 Test Item Value Reference Range Interpretation Comments Cholesterol Total 173 mg/dL 0-200 RISK OF HE ART (test code = DISEASEPublishe d by Cholesterol Total) [employer] Елена lyte Optimal Borderl ine [...] LDL/HDL Ratio=L DL Calc/HDL Chol Thyroid Stimulating [id number] 07:45:20 Test Item Value Reference Range Interpretation Comments TSH (test code = TSH) 1.250 mIU/mL 0.270-4.200 Hemoglobin [id number] 07:01:24 Test Item Value Reference Range Interpretation Comments Hemoglobin A1c (test code 5.5 % 4.8-5.9 No n Diabetic = Hemoglobin A1c) 4.8-5.9%Di abetic <7.0%
[2021-01-13 21:55] LABS: Absolute Lymphocytes (CBC) 1.2 K/uL (0.7-4.9); Basophils % 0.8 % (0-1.3); MPV 10.3 fL (7.6-11.3); RBC Red Blood Cell Count 4.62 M/uL (3.86-4.86)
[2021-01-13 22:04] LABS: Protime INR 1.03
[2021-01-13 22:12] LABS: ALT/SGPT 34 U/L (12-78); AST/SGOT 23 U/L (15-37); Albumin 3.6 g/dL (3.4-5.0); Alkaline Phosphatase 144 U/L (45-117); BUN Blood Urea Nitrogen 10 mg/dL (7-18); Bicarbonate 25 mmol/L (21-32); Bilirubin Direct 0.1 mg/dL (0-0.2); Bilirubin Total 0.6 mg/dL (0.2-1.0); Creatine Phosphokinase 99 U/L (26-192); Glucose Level 110 mg/dL (74-106); Lipase 62 U/L (73-393); Magnesium 2.1 mg/dL (1.8-2.4); NT PRO-BNP 221 pg/mL (<125); Potassium 3.6 mmol/L (3.5-5.1); Protein, Total 8.3 g/dL (6.4-8.2); Sodium Level 139 mmol/L (136-145); Troponin (Emerg Dept Use Only) < 0.02 ng/mL (0.0-0.045)
[2021-01-13 22:15] LABS: CKMB Creatine Kinase MB < 1.0 ng/mL (1.0-3.6)
[2021-01-13] MEDS ORDERED: LABETALOL 20 MG/4ML SYRINGE IV ONE (22:39)
[2021-01-13] MEDS ORDERED: NA CHLORIDE 0.9% 1,000 ML ONE (22:39)
[2021-01-13 23:15] LABS: Arterial Blood Carboxyhemoglob 1.1 % (0-1.5); Blood Gas Oxyhemoglobin 91.9 % (94-97); Blood O2 Saturation 93.9 % (92-98.5)
[2021-01-14 01:00] LABS: Barbiturates NEGATIVE (NEGATIVE); Benzodiazepines NEGATIVE (NEGATIVE); Cocaine POSITIVE (NEGATIVE); METHAMPHETAM NEGATIVE (NEGATIVE); Methadone NEGATIVE (NEGATIVE); Opiates NEGATIVE (NEGATIVE); Phencyclidine NEGATIVE (NEGATIVE); THC Cannibis NEGATIVE (NEGATIVE)
--- NOTE | 2021-01-14 01:20 | EDPHYS ---
Physician Documentation [facility] Name: Howard Clarke Age: 55 yrs Sex: Female : 1965 Arrival Date: 01/13/2021 Time: 21:28 Bed 7 Private MD: ED Physician Rex Baker HPI: 01/13 23:39 This 55 yrs old Black Female presents to ER via EMS with complaints of Shortness Of pkl Breath. 23:39 The patient has shortness of breath at rest. Onset: The symptoms/episode began/occurred pkl 3 day(s) ago. Associated signs and symptoms: The patient has no apparent associated signs or symptoms. Historical: - Allergies: 21:34 No Known Drug Allergies; ea - PMHx: 21:34 Hypertension; Depression; Bipolar disorder; ea - PSHx: 21:34 None; ea - Immunization history:: Adult Immunizations up to date. - Social history:: Smoking status: unknown. ROS: 23:39 Eyes: Negative for injury, pain, redness, and discharge, ENT: Negative for injury, pkl pain, and discharge, Neck: Negative for injury, pain, and swelling, Cardiovascular: Negative for chest pain, palpitations, and edema. 23:39 Respiratory: Positive for shortness of breath, at rest. 23:39 Abdomen/GI: Negative for abdominal pain, nausea, vomiting, and diarrhea. 23:39 Back: Negative for acute changes. 23:39 : Negative for urinary symptoms. 23:39 MS/extremity: Negative for acute changes. 23:39 Skin: Negative for rash. 23:39 Neuro: Negative for altered mental status, loss of consciousness. Exam: 23:39 Head/Face: Normocephalic, atraumatic. Eyes: Pupils equal round and reactive to light, pkl extra-ocular motions intact. Lids and lashes normal. Conjunctiva and sclera are non-icteric and not injected. Cornea within normal limits. Periorbital areas with no swelling, redness, or edema. ENT: Nares patent. No nasal discharge, no septal abnormalities noted. Tympanic membranes are normal and external auditory canals are clear. Oropharynx with no redness, swelling, or masses, exudates, or evidence of obstruction, uvula midline. Mucous membranes moist. Neck: Trachea midline, no thyromegaly or masses palpated, and no cervical lymphadenopathy. Supple, full range of motion without nuchal rigidity, or vertebral point tenderness. No Meningismus. Chest/axilla: Normal chest wall appearance and motion. Nontender with no deformity. No lesions are appreciated. Cardiovascular: Regular rate and rhythm with a normal S1 and S2. No gallops, murmurs, or rubs. Normal PMI, no JVD. No pulse deficits. 23:39 Respiratory: the patient does not display signs of respiratory distress, Respirations: normal, Breath sounds: bronchial sounds, that are mild, are scattered, rhonchi, that are mild, are scattered. 23:39 Abdomen/GI: Bowel sounds: normal, Palpation: abdomen is soft and non-tender, in all quadrants. 23:39 Back: Exam negative for acute changes. 23:39 : Exam negative for acute changes. 23:39 Musculoskeletal/extremity: Exam is negative for acute changes. 23:39 Skin: Exam negative for rash. 23:39 Neuro: Orientation: is normal, Mentation: is normal, Cranial nerves: grossly normal, Motor: is normal. Vital Signs: 21:30 BP 167 / 128; Pulse 92; Resp 18; Temp 98.5; Pulse Ox 97% on R/A; Weight 97.52 kg; ea Height 5 ft. 4 in. (162.56 cm); 22:26 BP 187 / 117; Pulse 83; Resp 18 S; Pulse Ox 96% on R/A; ea 22:36 BP 152 / 90; Pulse 76; Resp 18 S; Pulse Ox 97% on R/A; ea 23:40 BP 175 / 104; Pulse 91; Resp 20 S; Pulse Ox 95% on R/A; ea 01/14 00:23 BP 183 / 100; Pulse 78; Resp 18 S; Pulse Ox 97% on R/A; ea 01:11 BP 166 / 96; Pulse 77; Resp 16 S; Pulse Ox 97% on R/A; ad5 01/13 21:30 Body Mass Index 36.90 (97.52 kg, 162.56 cm) ea MDM: 01:12 Data reviewed: vital signs, nurses notes, lab test result(s), EKG, radiologic studies, pkl plain films. ED course: Patient feeling better. Discussed lab and imaging studies with patient . Advised to follow up with her PCP in 2 to 3 days. Patient understood instructions. 01:19 Patient medically screened. pkl 01/13 21:30 Order name: BMP 01/13 21:30 Order name: CBC with Diff 01/13 21:30 Order name: Ckmb; Complete Time: 23:44 01/13 21:30 Order name: CPK; Complete Time: 23:44 01/13 21:30 Order name: D-Dimer; Complete Time: 23:44 01/13 21:30 Order name: Hepatic Function; Complete Time: 23:44 01/13 21:30 Order name: Lipase; Complete Time: 23:44 01/13 21:30 Order name: Magnesium; Complete Time: 23:44 01/13 21:30 Order name: NT PRO-BNP; Complete Time: 23:44 01/13 21:30 Order name: PT-INR; Complete Time: 23:44 01/13 21:30 Order name: Ptt, Activated; Complete Time: 23:44 01/13 21:30 Order name: Troponin (emerg Dept Use Only); Complete Time: 23:44 01/13 21:30 Order name: Basic Metabolic Panel; Complete Time: 23:44 EDMS 01/13 21:30 Order name: CBC with Automated Diff; Complete Time: 23:44 EDMS 01/13 21:30 Order name: XRAY CXR (1 view) 01/13 21:30 Order name: EKG; Complete Time: 21:31 01/13 21:30 Order name: Cardiac monitoring; Complete Time: 21:37 01/13 21:30 Order name: EKG - Nurse/Tech; Complete Time: 21:37 01/13 21:30 Order name: IV Saline Lock; Complete Time: :47 01/13 21:30 Order name: Labs collected and sent; Complete Time: 21:47 01/13 21:30 Order name: O2 Per Protocol; Complete Time: 21:47 01/13 21:30 Order name: O2 Sat Monitoring; Complete Time: 21:47 01/13 22:10 Order name: ABG; Complete Time: 23:44 pkl 01/13 22:10 Order name: UDS; Complete Time: 01:04 pkl Administered Medications: 01/13 22:27 Drug: NS 0.9% 1000 ml Route: IV; Rate: 125 ml/hr; Site: right antecubital; ea 01/14 01:27 Follow up: IV Status: Completed infusion; IV Intake: 325ml ad5 01/13 22:30 Drug: Trandate (labetalol) 10 mg Route: IVP; Site: right antecubital; ea 23:39 Follow up: Response: No adverse reaction; Other ea 01/14 00:38 Follow up: Response: No adverse reaction ad5 Disposition: 01/14/21 01:19 Discharged to Home. Impression: Acute dyspnea. Hypertension ( Non - Complaint ) Substance abuse. - Condition is Stable. - Prescriptions for Carvedilol 12.5 mg Oral Tablet - take 1 tablet by ORAL route 2 times per day with food; 60 tablet. Albuterol Sulfate 90 mcg/actuation - inhale 1-2 puff by INHALATION route every 4-6 hours; 1 Inhaler. - Medication Reconciliation Form, Thank You Letter, Antibiotic Education, Prescription Opioid Use form. - Follow up: Private Physician; When: 2 - 3 days; Reason: Re-evaluation by your physician. - Problem is new. - Symptoms have improved. Signatures: Dispatcher [employer] EDMS Rex Baker MD MD pkl Charlene Pruitt RN RN Vini Jackson ad5 Corrections: (The following items were deleted from the chart) 01:27 01:19 01/14/2021 01:19 Discharged to Home. Impression: Acute dyspnea. Hypertension ( ad5 Non - Complaint ) Substance abuse. Condition is Stable. Forms are Medication Reconciliation Form, Thank You Letter, Antibiotic Education, Prescription Opioid Use. Follow up: Private Physician; When: 2 - 3 days; Reason: Re-evaluation by your physician. Problem is new. Symptoms have improved. pkl
--- NOTE | 2021-01-14 01:20 | ER ---
Nurse's Notes [facility] Name: Howard Clarke Age: 55 yrs Sex: Female : 1965 Arrival Date: 01/13/2021 Time: 21:28 Bed 7 Private MD: Diagnosis: Acute dyspnea. Hypertension ( Non - Complaint ) Substance abuse Presentation: 01/13 21:30 Chief complaint: EMS states: Reports difficulty breathing for the past three days. EMS ea reports giving pt Albuterol and Atrovent treatment. Pt has history of HTN but not taking medication. Coronavirus screen: At this time, the client does not indicate any symptoms associated with coronavirus-19. Ebola Screen: No symptoms or risks identified at this time. Initial Sepsis Screen: Does the patient meet any 2 criteria? No. Patient's initial sepsis screen is negative. Does the patient have a suspected source of infection? No. Patient's initial sepsis screen is negative. Risk Assessment: Do you want to hurt yourself or someone else? Patient reports no desire to harm self or others. Onset of symptoms was January 13, 2021. 21:30 Acuity: OBDULIO 3 ea 21:30 Method Of Arrival: EMS: [facility] ea Triage Assessment: 21:32 General: Appears in no apparent distress. Behavior is appropriate for age. Pain: Denies ea pain. Neuro: Level of Consciousness is awake, alert, obeys commands, Oriented to person, place, time. Cardiovascular: Patient's skin is warm and dry. Respiratory: Reports labored breathing since three days ago worsens with a lot of activity Onset: The symptoms/episode began/occurred 3 days ago , the patient has mild shortness of breath. Derm: Skin is pink, warm \\T\\ dry. Historical: - Allergies: 21:34 No Known Drug Allergies; ea - PMHx: 21:34 Hypertension; Depression; Bipolar disorder; ea - PSHx: 21:34 None; ea - Immunization history:: Adult Immunizations up to date. - Social history:: Smoking status: unknown. Screenin:30 Abuse screen: Denies threats or abuse. Nutritional screening: No deficits noted. ea Tuberculosis screening: No symptoms or risk factors identified. Fall Risk None identified. Assessment: 21:40 Reassessment: Pt reports cough, "wheezing", SOB x 3 days. Denies hx of resp c/o. Pt ea also reports "sweats", but denies known fever. Afebrile in ED. Pt received neb tx by EMS fire captain with some improvement in s/s. General: Appears in no apparent distress. Behavior is calm, cooperative, appropriate for age. Neuro: Level of Consciousness is awake, alert, obeys commands, Oriented to person, place, time, situation, Appropriate for age Moves all extremities. Gait is steady. Cardiovascular: Reports fatigue, shortness of breath, Heart tones present Capillary refill < 3 seconds Patient's skin is warm and dry. Pulses are all present. Rhythm is regular. Respiratory: Reports shortness of breath since x 3 days cough that is productive, Airway is patent Respiratory effort is even, unlabored, Respiratory pattern is regular, symmetrical. GI: No deficits noted. No signs and/or symptoms were reported involving the gastrointestinal system. : No deficits noted. No signs and/or symptoms were reported regarding the genitourinary system. Derm: Skin is intact, Skin is dry, Skin is normal, Skin temperature is warm. 22:26 Reassessment: Patient appears in no apparent distress at this time. No changes from ea previously documented assessment. Patient and/or family updated on plan of care and expected duration. Pain level reassessed. 23:40 Reassessment: Additional 10mg IVP dose labetalol administered at this time to complete ea 20mg IVP labetalol ordered dose. Pt tolerated well. Given water/soda per request. NAD noted, will continue to monitor. 01/14 00:23 Reassessment: Patient appears in no apparent distress at this time. Patient and/or ea family updated on plan of care and expected duration. Pain level reassessed. Patient is alert, oriented x 3, equal unlabored respirations, skin warm/dry/pink. 01:11 Reassessment: Patient appears in no apparent distress at this time. Patient and/or ad5 family updated on plan of care and expected duration. Pain level reassessed. Patient is alert, oriented x 3, equal unlabored respirations, skin warm/dry/pink. Patient states feeling better. Vital Signs: 01/13 21:30 BP 167 / 128; Pulse 92; Resp 18; Temp 98.5; Pulse Ox 97% on R/A; Weight 97.52 kg; ea Height 5 ft. 4 in. (162.56 cm); 22:26 BP 187 / 117; Pulse 83; Resp 18 S; Pulse Ox 96% on R/A; ea 22:36 BP 152 / 90; Pulse 76; Resp 18 S; Pulse Ox 97% on R/A; ea 23:40 BP 175 / 104; Pulse 91; Resp 20 S; Pulse Ox 95% on R/A; ea 01/14 00:23 BP 183 / 100; Pulse 78; Resp 18 S; Pulse Ox 97% on R/A; ea 01:11 BP 166 / 96; Pulse 77; Resp 16 S; Pulse Ox 97% on R/A; ad5 01/13 21:30 Body Mass Index 36.90 (97.52 kg, 162.56 cm) ea ED Course: 01/13 21:28 Patient arrived in ED. ea 21:30 Patient has correct armband on for positive identification. Placed in gown. Bed in low ea position. Call light in reach. Side rails up X2. security monitor on. Pulse ox on. NIBP on. 21:32 Triage completed. ea 21:35 Arm band placed on right wrist. Patient placed in an exam room, on a stretcher, on ea pulse oximetry. 21:40 Charlene Pruitt RN is Primary Nurse. ea 21:46 Inserted saline lock: 22 gauge in right forearm, using aseptic technique. Blood ea collected. 22:01 Rex Baker MD is Attending Physician. pkl 22:05 XRAY CXR (1 view) In Process Unspecified. EDMS 01/14 01:26 No provider procedures requiring assistance completed. IV discontinued, intact, ad5 bleeding controlled, No redness/swelling at site. Pressure dressing applied. Administered Medications: 01/13 22:27 Drug: NS 0.9% 1000 ml Route: IV; Rate: 125 ml/hr; Site: right antecubital; ea 01/14 01:27 Follow up: IV Status: Completed infusion; IV Intake: 325ml ad5 01/13 22:30 Drug: Trandate (labetalol) 10 mg Route: IVP; Site: right antecubital; ea 23:39 Follow up: Response: No adverse reaction; Other ea 01/14 00:38 Follow up: Response: No adverse reaction ad5 Intake: :27 IV: 325ml; Total: 325ml. ad5 Outcome: 01:19 Discharge ordered by . pkl 01:26 Discharged to home ambulatory. ad5 01:26 Condition: stable 01:26 Discharge instructions given to patient, Instructed on discharge instructions, follow up and referral plans. medication usage, Demonstrated understanding of instructions, follow-up care, medications, Prescriptions given X 2. 01:27 Patient left the ED. ad5 Signatures: Dispatcher [employer] EDRex Mcbride MD MD pkl Antunez, Elena RN RN Vini Jackson ad5 Corrections: (The following items were deleted from the chart) 01/13 22:34 22:27 Trandate (labetalol) 20 mg IVP in right antecubital bill khan
[2021-01-14 01:34] VITALS: TEMP 98.5
[2021-01-14 01:40] VITALS: O2SAT 97
[2021-01-14 01:41] VITALS: BP 166/96
--- NOTE | 2021-01-14 07:17 | RAD REPORT ---
EXAM DESCRIPTION: Adi Single View01/13/2021 10:07 pm CLINICAL HISTORY: Congestion COMPARISON: none FINDINGS: The lungs appear clear of acute infiltrate. The heart is normal size IMPRESSION: No acute abnormalities displayed
--- NOTE | 2021-01-14 07:49 | EKG ---
Test Date: 2021-01-13 Test Time: 21:30:30 Dividing Machine Operator: SUNITA MEASUREMENT RESULTS: Intervals: Rate: 92 DE: 122 QRSD: 78 QT: 352 QTc: 435 [place]: P: 63 DE: 122 QRS: 86 T: 55 INTERPRETIVE STATEMENTS: Normal sinus rhythm Right atrial enlargement Borderline ECG Compared to ECG 03/07/2020 16:37:37 No significant changes Electronically Signed On 01-14-21 07:48:54 CDT by Tim Sparks
== END 2021-01-14 01:27 | disposition home or self-care (01) ==
LOC: ER 21:27
DX: R06.00 Dyspnea, unspecified (principal); I10 Essential (primary) hypertension; F19.10 Other psychoactive substance abuse, uncomplicated; Z91.14 Patient's other noncompliance with medication regimen
CPT/HCPCS: 36415; 71045; 80048; 80076; 80307; 82550; 82553; 82805; 83690; 83735; 83880; 84484; 85025; 85379; 85610; 85730; 93005; 96361; 96374; 99285; J7030

== ENCOUNTER 2022-06-11 12:06 | Emergency (ER) | payer OTHER, SELFPAY ==
--- OUTSIDE RECORDS SUMMARY | 2022-06-11 12:10 | XMS REPORT | Continuity of Care Document ---
:1965 Author Organization [facility] t Address [address] [place] [address] Care Team Providers Name Role Phone Veto Almonte Attending Clinician Unavailable Veto Almonte Attending Clinician Unavailable Veto Almonte Admitting Clinician Unavailable Problems This patient has no known problems. Allergies, Adverse Reactions, Alerts Allergy Allergy Status Severity Reaction(s) Onset Inactive Treating Comm ents Source Name Type Date Date Clinician No Known Drug Active [facility] Medications This patient has no known medications. Vital Signs Vital Name Observation Time Observation Value Comments Source Height/Length Measured 2020-04-10 00:56:10 Height/Length Measured 2021-08-12 13:23:33 162 cm Weight Dosing 2021-08-12 13:23:33 90.20 kg Height/Length Measured 2021-08-12 13:23:28 162 cm Weight Dosing 2021-08-12 13:23:28 90.20 kg Height/Length Measured 2021-08-12 13:23:27 162 cm Weight Dosing 2021-08-12 13:23:27 90.20 kg Height/Length Measured 2021-08-12 12:29:12 162 cm Weight Dosing 2021-08-12 12:29:12 90.20 kg Height/Length Measured 2021-08-12 12:26:42 102.5 cm Weight Dosing 2021-08-12 12:26:42 90.20 kg Height/Length Measured 2021-08-12 12:26:02 102.5 cm Weight Dosing 2021-08-12 12:26:02 90.20 kg Height/Length Measured 2021-08-12 12:25:31 102.5 cm Weight Dosing 2021-08-12 12:25:31 90.20 kg Height/Length Measured 2021-08-12 10:05:27 168 cm Weight Dosing 2021-08-12 10:05:27 88.00 kg Height/Length Measured 2021-08-12 10:04:30 168 cm Weight Dosing 2021-08-12 10:04:30 88.00 kg Height/Length Measured 2021-08-12 10:01:54 168 cm Weight Dosing 2021-08-12 10:01:54 88.00 kg Height/Length Measured 2021-08-12 10:01:44 168 cm Weight Dosing 2021-08-12 10:01:44 88.00 kg Procedures This patient has no known procedures. Encounters Start End Encounter Admission Attending Care Care Encounter Source Date/Time Date/Time Type Type Clinicians Facility Department ID 2020-04-09 Inpatient 1 Veto Almonte [facility] [id number] 15:30:00 Veto Almonte -[id number] [facility] 2020-04-09 2020-04-15 Inpatient 1 Veto Almonte [facility] [id number] 15:30:00 11:50:00 Veto Almonte [facility] 2019-11-11 2019-11-11 Emergency [facility] YANELY [id number] 04:25:00 04:25:00 [facility] Results Test Description Test Time Test Comments [...] Administration s Emergency Use Authorization." Comprehensive Metabolic [id number] 17:18:23 Test Item Value Reference Range Interpretation [...] = Lipemia) 0 g/dL 1-2 Comprehensive Metabolic [id number] 17:18:23 Test Item Value Reference Range Interpretation [...] code = 0 g/dL 1-2 Lipemia) Alcohol [id number] 17:18:23 Test Item Value Reference Range Interpretation Comments Ethanol Level 4.9 mg/dL N The pharmacolo gical (test code = response to blo od alcohol Ethanol Level) levels may va ry from individual to i ndividual. The fatal mayco ntration has been report ed to be >400 mg/dl. Comprehensive Metabolic [id number] 17:18:23 Test Item Value Reference Range Interpretation [...] ag e have not been validated by [facility] MDRD study and should be interpreted wit [...] ag e have not been validated by [facility] MDRD study and should be interpreted wit [...] = 0 g/dL 1-2 Lipemia) HCG Qualitative [id number] 17:07:59 Test Item Value Reference Range Interpretation Comments hCG Ur (test code = Negative If the r esult is hCG Ur) "Negative" in p atients suspected to be , recom mend retest with a s ample obtained 48 to 72 hours later, or by ordering a quantitative as say. If the result is "Borderline" te sting should be repea ejrilyn in 48 to 72 hours. Lot # (test code = [id number] Lot #) Expiration Dt (test 03/25/2021 N code = Expiration Dt) Neg Control (test Negative code = Neg Control) Pos Control (test Positive code = Pos Control) Internal QC (test Acceptable code = Internal QC) Complete Blood Count with [id number] 17:01:29 Test Item Value Reference Range Interpretation [...] = 0.00 x10 N NRBC Abs) Automated [id number] 17:01:29 Test Item Value Reference Range Interpretation Comments Neutro Auto (test code = Neutro 42.9 % 36.0-70.0 Auto) Lymph Auto (test code = Lymph Auto) 44.7 % 12.0-44.0 H Pasco Auto (test code = [place] Auto) 7.5 % 0.0-11.0 Eos, Auto (test code = Eos, Auto) 4.1 % 0.0-7.0 Basophil Auto (test code = Basophil 0.5 % 0.0-2.0 Auto) Neutro Absolute (test code = Neutro 2.6 x10 1.6-7.4 Absolute) Lymph Absolute (test code = Lymph 2.73 x10 .50-4.60 Absolute) Pas[place] Absolute (test code = [place] .46 x10 .00-1.20 Absolute) Eos Absolute (test code = Eos 0.25 x10 0.00-0.74 Absolute) Baso Absolute (test code = Baso 0.03 x10 0.00-0.21 Absolute) IG [id number] 17:01:29 Test Item Value Reference Range Interpretation Comments IG (test code = IG) 0.3 % 0.0-5.0 IG Abs (test code = IG Abs) 0 x10 N Urinalysis with Microscopic if [id number] 16:52:48 Test Item Value Reference Range Interpretation [...] Not Indicated Not Indicated Micro Ind?) RPR [id number] 17:29:09 Test Item Value Reference Range Interpretation Comments RPR Qual (test code = RPR Qual) Non-Reactive Non-Reactive Reactive Control (test code = Reactive Reactive Control) Weak Reactive Control (test Weak Reactive code = Weak Reactive Control) Non-Reactive Control (test code Non-Reactive = Non-Reactive Control) Lot # (test code = Lot #) [id number] N Expiration Dt (test code = 20 N Expiration Dt) Lipid [id number] 07:45:20 Test Item Value Reference Range Interpretation Comments Cholesterol Total 173 mg/dL 0-200 RISK OF HE ART (test code = DISEASEPublishe d by Cholesterol Total) [employer] Елена lyte Optimal Borderl ine Increased RiskC HOL <200 200-239 >240TRI G <150 150-199 >200HDL Male >60 <40HDL Fema le >60 <50LDL <100 130 -159 >160LDL Near op timal is 100-129 Triglycerides (test 105 mg/dL 9-200 [...] LDL/HDL Ratio=L DL Calc/HDL Chol Thyroid Stimulating [id number] 07:45:20 Test Item Value Reference Range Interpretation Comments TSH (test code = TSH) 1.250 mIU/mL 0.270-4.200 Hemoglobin [id number] 07:01:24 Test Item Value Reference Range Interpretation Comments Hemoglobin A1c (test code 5.5 % 4.8-5.9 No n Diabetic = Hemoglobin A1c) 4.8-5.9%Di abetic <7.0%
[2022-06-11] MEDS ORDERED: KETOROLAC 30 MG/ML INJ ONE (13:45)
[2022-06-11] MEDS ORDERED: CYCLOBENZAPRINE 10 MG TAB ONE (13:45)
--- NOTE | 2022-06-11 14:05 | RAD REPORT ---
EXAM DESCRIPTION: RAD - Sacrum And Coccyx - 06/11/2022 1:41 pm CLINICAL HISTORY: PAIN COMPARISON: Hip Left 2 View dated 06/11/2022 FINDINGS/IMPRESSION: Possible fracture of the left sacral wing. Correlate with site of pain. CT coul d confirm. No other fracture identified.
--- NOTE | 2022-06-11 14:10 | RAD REPORT ---
EXAM DESCRIPTION: RAD - Hip Left 2 View - 06/11/2022 1:41 pm CLINICAL HISTORY: PAIN COMPARISON: No comparisons FINDINGS/IMPRESSION: No acute fracture. No malalignment. No significant focal degenerative changes.
--- NOTE | 2022-06-11 15:19 | RAD REPORT ---
EXAM DESCRIPTION: CT - Pelvis Wo Cont - 06/11/2022 3:13 pm CLINICAL HISTORY: r/o fracture COMPARISON: No comparisons FINDINGS: No pelvic or hip fracture identified. No bowel obstruction is seen. Nonspecific bladder wa ll thickening. Degenerative changes are present the lower spine. IMPRESSION: No pelvic or hip fracture identified.
--- NOTE | 2022-06-11 15:26 | ER ---
Nurse's Notes [facility] Name: Howard Clarke Age: 56 yrs Sex: Female : 1965 Arrival Date: 06/11/2022 Time: 12:08 Bed 10 Private MD: Diagnosis: Contusion of lower back and pelvis Presentation: 06/11 12:56 Chief complaint: Patient states: fell in [employer] yesterday on wet floor. left kr3 hip, left side back and left upper leg sore. Coronavirus screen: Vaccine status: Patient reports being unvaccinated. Client denies travel out of the [place] in the last 14 days. Ebola Screen: Patient denies travel to an Ebola-affected area in the 21 days before illness onset. Initial Sepsis Screen: Does the patient meet any 2 criteria? No. Patient's initial sepsis screen is negative. Does the patient have a suspected source of infection? No. Patient's initial sepsis screen is negative. Risk Assessment: Do you want to hurt yourself or someone else? Patient reports no desire to harm self or others. Onset of symptoms was June 10, 2022. 12:56 Method Of Arrival: Ambulatory kr3 12:56 Acuity: OBDULIO 4 kr3 Triage Assessment: 13:02 General: Appears in no apparent distress. uncomfortable, Behavior is calm, cooperative, kr3 appropriate for age. Pain: Complains of pain in back, buttocks and left leg. Musculoskeletal: Circulation, motion, and sensation intact. 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 - Social history:: Smoking status: Patient denies any tobacco usage or history of. Screenin:42 Abuse screen: Denies threats or abuse. Denies injuries from another. Nutritional tp1 screening: No deficits noted. Tuberculosis screening: No symptoms or risk factors identified. Fall Risk Fall in past 12 months (25 points). No secondary diagnosis (0 pts). No IV (0 pts). Ambulatory Aid- None/Bed Rest/Nurse Assist (0 pts). Gait- Normal/Bed Rest/Wheelchair (0 pts) Mental Status- Oriented to own ability (0 pts). Total Osorio Fall Scale indicates Low Risk Score (25-44 pts). Fall prevention measures have been instituted. Side Rails Up X 2 Placed close to Nursing Station Frequent Obs/Assesments occuring As available Patient and Family Educated on Fall Prevention Program and strategies. Assessment: 13:41 General: Appears in no apparent distress. comfortable. Pain: Complains of pain in lower tp1 back and left leg Pain radiates to left leg Pain currently is 8 out of 10 on a pain scale. Quality of pain is described as shooting, Pain began 1 day ago. Neuro: Level of Consciousness is awake, alert, obeys commands, Oriented to person, place, time, situation. Cardiovascular: Patient's skin is warm and dry. Respiratory: Airway is patent Respiratory effort is even, unlabored. GI: No signs and/or symptoms were reported involving the gastrointestinal system. : No signs and/or symptoms were reported regarding the genitourinary system. EENT: No signs and/or symptoms were reported regarding the EENT system. Derm: Skin is pink, warm \T\ dry. Musculoskeletal: Circulation, motion, and sensation intact. 14:54 Reassessment: Patient appears in no apparent distress at this time. No changes from tp1 previously documented assessment. Patient and/or family updated on plan of care and expected duration. Pain level reassessed. Patient is alert, oriented x 3, equal unlabored respirations, skin warm/dry/pink. Vital Signs: 12:56 BP 180 / 127; Pulse 54; Resp 18; Temp 97.8(O); Pulse Ox 99% on R/A; Weight 89.81 kg; kr3 Height 5 ft. 4 in. (162.56 cm); Pain 8/10; 15:37 BP 170 / 105; Pulse 60; Resp 20; Pulse Ox 98% ; Pain 4/10; kb3 12:56 Body Mass Index 33.99 (89.81 kg, 162.56 cm) kr3 ED Course: 12:08 Patient arrived in ED. am2 12:52 Deb Graves FNP [facility] jh7 12:52 Chito Franco MD is Attending Physician. jh7 13:01 Triage completed. kr3 13:02 Arm band placed on left wrist. kr3 13:41 Amrita Mims, RN is Primary Nurse. tp1 13:42 XRAY Sacrum And Coccyx In Process Unspecified. EDMS 13:42 XRAY Hip LEFT 2 view In Process Unspecified. EDMS 13:42 Patient has correct armband on for positive identification. Bed in low position. Call tp1 light in reach. 13:42 No provider procedures requiring assistance completed. tp1 15:15 CT Pelvis wo Cont In Process Unspecified. EDMS 15:38 Patient did not have IV access during this emergency room visit. kb3 Administered Medications: 13:49 Drug: Ketorolac 60 mg Route: IM; Site: right deltoid; tp1 15:39 Follow up: Response: No adverse reaction; Pain is decreased kb3 13:49 Drug: Flexeril (cyclobenzaprine) 10 mg Route: PO; tp1 15:39 Follow up: Response: No adverse reaction; Pain is decreased kb3 Medication: 15:38 VIS not applicable for this client. kb3 Outcome: 15:[address] . [facility] 15:38 Discharged to home ambulatory. kb3 15:38 Condition: stable 15:38 Discharge instructions given to patient, Instructed on discharge instructions, follow up and referral plans. medication usage, Demonstrated understanding of instructions, follow-up care, medications, Prescriptions given X 2. 15:39 Patient left the ED. kb3 Signatures: Dispatcher [employer] EDMS Rehana Gordon Tiffany, RN RN tp1 Deb Graves FNP [employer]LEMENT[employer] SUBSTITUTE TEACHER 7 Leisa Ribera RN RN kr3 Amber Antony RN RN kb3
--- NOTE | 2022-06-11 15:26 | EDPHYS ---
Physician Documentation [facility] Name: Howard Clarke Age: 56 yrs Sex: Female : 1965 Arrival Date: 06/11/2022 Time: 12:08 Bed 10 Private MD: CESIA Physician Chito Franco HPI: 06/11 13:05 This 56 yrs old Black Female presents to ER via Ambulatory with complaints of Leg Pain jh7 - left, Back Pain. 13:05 The patient presents with a contusion. The complaints affect the left sacrum. Onset: jh7 The symptoms/episode began/occurred yesterday. Patient complains of left sacral pain after slipping and falling in [employer] yesterday. States that the pain is now radiating down her leg. Is able to bear weight without difficulty. Denies LOC or head injury.. 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 - Social history:: Smoking status: Patient denies any tobacco usage or history of. ROS: 13:05 Constitutional: Negative for fever, chills, and weight loss, Eyes: Negative for injury, jh7 pain, redness, and discharge, Neck: Negative for injury, pain, and swelling, Cardiovascular: Negative for chest pain, palpitations, and edema, Respiratory: Negative for shortness of breath, cough, wheezing, and pleuritic chest pain, Abdomen/GI: Negative for abdominal pain, nausea, vomiting, diarrhea, and constipation, Skin: Negative for injury, rash, and discoloration, Neuro: Negative for headache, weakness, numbness, tingling, and seizure. 13:05 Back: Positive for pain with movement. 13:05 MS/extremity: Positive for pain. 13:05 All other systems are negative. Exam: 13:05 Constitutional: This is a well developed, well nourished patient who is awake, alert, jh7 and in no acute distress. Head/Face: Normocephalic, atraumatic. Eyes: Pupils equal round and reactive to light, extra-ocular motions intact. Lids and lashes normal. Conjunctiva and sclera are non-icteric and not injected. Cornea within normal limits. Periorbital areas with no swelling, redness, or edema. Cardiovascular: Regular rate and rhythm with a normal S1 and S2. No gallops, murmurs, or rubs. Normal PMI, no JVD. No pulse deficits. Respiratory: Lungs have equal breath sounds bilaterally, clear to auscultation and percussion. No rales, rhonchi or wheezes noted. No increased work of breathing, no retractions or nasal flaring. Abdomen/GI: Soft, non-tender, with normal bowel sounds. No distension or tympany. No guarding or rebound. No evidence of tenderness throughout. Skin: Warm, dry with normal turgor. Normal color with no rashes, no lesions, and no evidence of cellulitis. MS/ Extremity: Pulses equal, no cyanosis. Neurovascular intact. Full, normal range of motion. Neuro: Awake and alert, GCS 15, oriented to person, place, time, and situation. Motor strength 5/5 in all extremities. Sensory grossly intact. Normal gait. 13:05 Back: pain, that is moderate, of the sacrum and left leg, ROM is normal, normal spinal alignment noted, Tenderness to palpation only over the left sacral area. Pain radiates down left leg. No bruising, swelling, or deformity noted. Motor function and sensation intact.. Vital Signs: 12:56 BP 180 / 127; Pulse 54; Resp 18; Temp 97.8(O); Pulse Ox 99% on R/A; Weight 89.81 kg; kr3 Height 5 ft. 4 in. (162.56 cm); Pain 8/10; 15:37 BP 170 / 105; Pulse 60; Resp 20; Pulse Ox 98% ; Pain 4/10; kb3 12:56 Body Mass Index 33.99 (89.81 kg, 162.56 cm) kr3 MDM: 12:52 Patient medically screened. [facility] 15:30 Differential diagnosis: dislocation, closed fracture, contusion. Data reviewed: vital [facility] signs, nurses notes, radiologic studies, CT scan, plain films. Data interpreted: Pulse oximetry: is 98 %. Interpretation: normal. Counseling: I had a detailed discussion with the patient and/or guardian regarding: the historical points, exam findings, and any diagnostic results supporting the discharge/admit diagnosis, to return to the emergency department if symptoms worsen or persist or if there are any questions or concerns that arise at home. 06/11 13:01 Order name: XRAY Sacrum And Coccyx; Complete Time: 14:29 [facility] 06/11 13:01 Order name: XRAY Hip LEFT 2 view; Complete Time: 14:29 [facility] 06/11 14:31 Order name: CT Pelvis wo Cont; Complete Time: 15:21 [facility] Administered Medications: 13:49 Drug: Ketorolac 60 mg Route: IM; Site: right deltoid; tp1 15:39 Follow up: Response: No adverse reaction; Pain is decreased kb3 13:49 Drug: Flexeril (cyclobenzaprine) 10 mg Route: PO; tp1 15:39 Follow up: Response: No adverse reaction; Pain is decreased kb3 Disposition Summary: 06/11/22 15:25 Discharge Ordered Location: Home [facility] Condition: Stable [facility] Diagnosis - Contusion of lower back and pelvis [facility] Followup: [facility] - With: Private Physician - When: 2 - 3 days - Reason: Recheck today's complaints Discharge Instructions: - Discharge Summary Sheet [facility] - Contusion [facility] Forms: - Medication Reconciliation Form [facility] - Thank You Letter [facility] Prescriptions: - Naprosyn 500 mg Oral Tablet - take 1 tablet by ORAL route 2 times per day take with food; 30 tablet; Refills: [facility] 0, Product Selection Permitted - Zanaflex 4 mg Oral Tablet - take 1 tablet by ORAL route every 8 hours As needed; 20 tablet; Refills: 0, [facility] Product Selection Permitted Addendum: 06/13/2022 08:33 Co-signature as Attending Physician, Chito Franco MD I agree with the assessment and c her plan of care. Signatures: Dispatcher [employer] Chito Snow MD MD cha Parker, Tiffany, RN RN tp1 Deb Graves, MARYANN GRIEVANCE MANAGER 7 Leisa Ribera RN RN kr3 Amber Antony RN kb3
[2022-06-11 16:06] VITALS: TEMP 97.8
[2022-06-11 16:14] VITALS: BP 170/105; O2SAT 98
== END 2022-06-11 15:39 | disposition home or self-care (01) ==
LOC: ER 12:06
DX: S30.0XXA Contusion of lower back and pelvis, initial encounter (principal)
CPT/HCPCS: 72192; 72220; 96372; 99283

== ENCOUNTER 2022-11-16 20:24 | Emergency (ER) | payer SELFPAY ==
--- OUTSIDE RECORDS SUMMARY | 2022-11-16 20:27 | XMS REPORT | Continuity of Care Document ---
:1965 Author Organization [facility] t Address [address] [facility] [address] [place] [address] Care Team Providers Name Role Phone Veto Almonte Attending Clinician Unavailable Veto Almonte Attending Clinician Unavailable Veto Almonte Admitting Clinician Unavailable Problems This patient has no known problems. Allergies, Adverse Reactions, Alerts Allergy Allergy Status Severity Reaction(s) Onset Inactive Treating Comm ents Source Name Type Date Date Clinician No Known Drug Active [facility] Medications This patient has no known [...] Department ID 2020-04-09 Inpatient 1 Veto Almonte [facility] [id number] 15:30:00 Veto Almonte [id number] [facility] 2022-10-21 2022-10-21 Outpatient SFA SFA [id number] Aamir 14:01:11 14:01:11 0[address] Feliz 2020-04-09 2020-04-15 Inpatient 1 Veto Almonte [facility] [id number] 15:30:00 11:50:00 Veto Almonte [facility] 2019-11-11 2019-11-11 Emergency [facility] YANELY [id number] 04:25:00 04:25:00 [facility] Results Test Description Test Time Test Comments [...] Administration s Emergency Use Authorization." Comprehensive Metabolic [id number] 17:18:23 Test Item Value Reference Range Interpretation [...] = Lipemia) 0 g/dL 1-2 Comprehensive Metabolic [id number] 17:18:23 Test Item Value Reference Range Interpretation [...] code = 0 g/dL 1-2 Lipemia) Alcohol [id number] 17:18:23 Test Item Value Reference Range Interpretation Comments Ethanol Level 4.9 mg/dL N The pharmacolo gical (test code = response to blo od alcohol Ethanol Level) levels may va ry from individual to i ndividual. The fatal mayco ntration has been report ed to be >400 mg/dl. Comprehensive Metabolic [id number] 17:18:23 Test Item Value Reference Range Interpretation [...] ag e have not been validated by e MDRD study and should be interpreted [...] = 0 g/dL 1-2 Lipemia) HCG Qualitative [id number] 17:07:59 Test Item Value Reference Range Interpretation Comments hCG Ur (test code = Negative If the r esult is hCG Ur) "Negative" in p atients suspected to be , recom mend retest with a s ample obtained 48 to 72 hours later, or by ordering a quantitative as say. If the result is "Borderline" te sting should be repea jerilyn in 48 to 72 hours. Lot # (test code = [id number] Lot #) Expiration Dt (test 03/25/2021 N code = Expiration Dt) Neg Control (test Negative code = Neg Control) Pos Control (test Positive code = Pos Control) Internal QC (test Acceptable code = Internal QC) Complete Blood Count with [id number] 17:01:29 Test Item Value Reference Range Interpretation [...] = 0.00 x10 N NRBC Abs) Automated [id number] 17:01:29 Test Item Value Reference Range Interpretation Comments Neutro Auto (test code = Neutro 42.9 % 36.0-70.0 Auto) Lymph Auto (test code = Lymph Auto) 44.7 % 12.0-44.0 H Traill Auto (test code = Traill Auto) 7.5 % 0.0-11.0 Eos, Auto (test code = Eos, Auto) 4.1 % 0.0-7.0 Basophil Auto (test code = Basophil 0.5 % 0.0-2.0 Auto) Neutro Absolute (test code = Neutro 2.6 x10 1.6-7.4 Absolute) Lymph Absolute (test code = Lymph 2.73 x10 .50-4.60 Absolute) Traill Absolute (test code = Traill .46 x10 .00-1.20 Absolute) Eos Absolute (test code = Eos 0.25 x10 0.00-0.74 Absolute) Baso Absolute (test code = Baso 0.03 x10 0.00-0.21 Absolute) IG [id number] 17:01:29 Test Item Value Reference Range Interpretation Comments IG (test code = IG) 0.3 % 0.0-5.0 IG Abs (test code = IG Abs) 0 x10 N Urinalysis with Microscopic if [id number] 16:52:48 Test Item Value Reference Range Interpretation [...] Not Indicated Not Indicated Micro Ind?) RPR [id number] 17:29:09 Test Item Value Reference Range Interpretation Comments RPR Qual (test code = RPR Qual) Non-Reactive Non-Reactive Reactive Control (test code = Reactive Reactive Control) Weak Reactive Control (test Weak Reactive code = Weak Reactive Control) Non-Reactive Control (test code Non-Reactive = Non-Reactive Control) Lot # (test code = Lot #) [id number] Expiration Dt (test code = 12.31.20 N Expiration Dt) Lipid [id number] 07:45:20 Test Item Value Reference Range Interpretation Comments Cholesterol Total 173 mg/dL 0-200 RISK OF HE ART (test code = DISEASEPublishe d by Cholesterol Total) [place] [employer] Елена lyte Optimal Borderl ine [...] LDL/HDL Ratio=L DL Calc/HDL Chol Thyroid Stimulating [id number] 07:45:20 Test Item Value Reference Range Interpretation Comments TSH (test code = TSH) 1.250 mIU/mL 0.270-4.200 Hemoglobin [id number] 07:01:24 Test Item Value Reference Range Interpretation Comments Hemoglobin A1c (test code 5.5 % 4.8-5.9 No n Diabetic = Hemoglobin A1c) 4.8-5.9%Di abetic <7.0%
[2022-11-16 21:15] LABS: Absolute Lymphocytes (CBC) 2.2 K/uL (0.7-4.9); Hematocrit 40.7 % (36.0-45.0); Lymphocytes % 27.3 % (15.3-44.8); MCV 91.4 fL (80-100); MPV 9.6 fL (7.6-11.3); RBC Red Blood Cell Count 4.45 M/uL (3.86-4.86)
[2022-11-16] MEDS ORDERED: HYDRALAZINE HCL 20 MG/ML VIAL ONE ×2 (21:28→22:08)
[2022-11-16] MEDS ORDERED: lisinopriL 20 MG TAB ONE (21:28)
--- NOTE | 2022-11-16 21:31 | RAD REPORT ---
EXAM DESCRIPTION: RADChest Single View11/16/2022 8:51 pm CLINICAL HISTORY: CHEST PAIN COMPARISON: Chest Single View dated 01/13/2021 TECHNIQUE: Portable AP view of the chest. FINDINGS: The lungs are clear. Increased density over the lung bases, favored to be artifactual, rel ated to superimposition of soft tissues. No pneumothorax or effusion. The cardiomediastinal contours are unremarkable. IMPRESSION: No acute cardiopulmonary process.
[2022-11-16 21:35] LABS: ALT/SGPT 20 U/L (13-56); AST/SGOT 21 U/L (15-37); Albumin 3.6 g/dL (3.4-5.0); Alkaline Phosphatase 121 U/L (45-117); BUN Blood Urea Nitrogen 22 mg/dL (7-18); Bicarbonate 25 mEq/L (21-32); Bilirubin Total 0.3 mg/dL (0.2-1.0); Glomerular Filtration Rate 41 ml/min (=/>90); Glucose Level 105 mg/dL (74-106); NT PRO-BNP 117 pg/mL (<125); Potassium 4.1 mEq/L (3.5-5.1); Protein, Total 7.9 g/dL (6.4-8.2); Sodium Level 137 mEq/L (136-145); Troponin High Sensitivity 14.2 pg/mL (<58.9)
[2022-11-16 21:42] LABS: Bilirubin Direct < 0.1 mg/dL (0-0.2)
[2022-11-16 21:43] LABS: Protime INR 0.88
[2022-11-16] MEDS ORDERED: IPRATROPIUM BROM 0.5MG/2.5ML ONE (22:49)
[2022-11-16] MEDS ORDERED: NA CHLORIDE 0.9% 500 ML ONE (22:49)
[2022-11-16] MEDS ORDERED: ALBUTEROL 2.5 MG/3 ML NEB SOL ONE (22:49)
--- NOTE | 2022-11-17 00:01 | ER ---
Nurse's Notes [facility] Name: Howard Clarke Age: 57 yrs Sex: Female : 1965 Arrival Date: 11/16/2022 Time: 20:24 Bed 23 Private MD: Diagnosis: Mild persistent asthma;Hypertensive heart disease without heart failure Presentation: 11/16 20:28 Chief complaint: Patient states: c/o high blood pressure that started today due to her as6 not taking her medication today. pt is in custody and needs to be medically cleared. Coronavirus screen: At this time, the client does not indicate any symptoms associated with coronavirus-19. Ebola Screen: No symptoms or risks identified at this time. Initial Sepsis Screen: Does the patient meet any 2 criteria? No. Patient's initial sepsis screen is negative. Does the patient have a suspected source of infection? No. Patient's initial sepsis screen is negative. Risk Assessment: Do you want to hurt yourself or someone else? Patient reports no desire to harm self or others. Onset of symptoms was November 16, 2022. 20:28 Acuity: OBDULIO 3 as6 20:28 Method Of Arrival: Law Enforcement as6 Historical: - Allergies: 20:28 No Known Allergies; as6 - PMHx: 20:28 Bipolar disorder; Depression; Hypertension; Asthma; as6 - PSHx: 20:28 None; as6 - Immunization history:: Client reports having NOT received the Covid vaccine. - Social history:: Smoking status: Patient denies any tobacco usage or history of. Screenin:33 [facility] ED Fall Risk Assessment (Adult) Score/Fall Risk Level 0 - 2 = Low Risk. Abuse as6 screen: Denies threats or abuse. Denies injuries from another. Nutritional screening: No deficits noted. Tuberculosis screening: No symptoms or risk factors identified. Assessment: 20:41 General: Appears in no apparent distress. Behavior is calm, cooperative. Pain: as6 Complains of pain in back. Neuro: Level of Consciousness is awake, alert, obeys commands, Oriented to person, place, time, situation. Cardiovascular: Denies chest pain, shortness of breath, Capillary refill < 3 seconds Patient's skin is warm and dry. Respiratory: Respiratory effort is even, unlabored, Respiratory pattern is regular, symmetrical. GI: No deficits noted. No signs and/or symptoms were reported involving the gastrointestinal system. : No deficits noted. No signs and/or symptoms were reported regarding the genitourinary system. EENT: No deficits noted. No signs and/or symptoms were reported regarding the EENT system. Derm: Skin is intact, is healthy with good turgor. Musculoskeletal: Reports pain in back. 11/17 00:22 General: discharge pending symptom improvement . as6 Vital Signs: 11/16 20:28 BP 212 / 131; Pulse 75; Resp 18 S; Temp 97.6(O); Pulse Ox 100% on R/A; Weight 89.81 kg as6 (R); Height 5 ft. 1 in. (R); Pain 8/10; 22:11 BP 185 / 119; Pulse 101; Resp 18 S; Pulse Ox 100% on R/A; as6 22:50 BP 99 / 59; Pulse 55; Resp 15 S; Pulse Ox 100% on 6 lpm Nebulizer Mask; as6 23:43 BP 137 / 81; Pulse 69; Resp 18 S; Pulse Ox 98% on R/A; as6 11/17 00:45 BP 128 / 82; Pulse 74; Resp 18 S; Pulse Ox 96% on R/A; as6 11/16 20:28 Body Mass Index 37.41 (89.81 kg, 154.94 cm) as6 11/16 20:28 Pain Scale: Adult as6 ED Course: 11/16 20:27 Patient arrived in ED. as6 20:27 Matthew Hernandez, RN is Primary Nurse. as6 20:27 Arm band placed on. as6 20:32 Triage completed. as6 20:33 Bed in low position. Call light in reach. Side rails up X 1. as6 20:42 Moshe Montes MD is Attending Physician. kdr 20:53 XRAY Chest (1 view) In Process Unspecified. EDMS 21:02 Missed attempt(s): 24 gauge in left forearm. Bleeding controlled, band aid applied, ds4 catheter tip intact. 21:34 Inserted saline lock: 22 gauge in right hand, using aseptic technique. as6 11/17 00:01 No provider procedures requiring assistance completed. as6 01:19 IV discontinued, intact, bleeding controlled, No redness/swelling at site. Pressure as6 dressing applied. Administered Medications: 11/16 21:34 Drug: Lisinopril PO 20 mg Route: PO; as6 11/17 00:01 Follow up: Response: No adverse reaction as6 11/16 21:34 Drug: hydrALAZINE IVP 10 mg Route: IVP; Site: right hand; as6 11/17 00:01 Follow up: Response: No adverse reaction as6 11/16 22:06 Drug: hydrALAZINE IVP 20 mg {Note: bp 184/119.} Route: IVP; Site: right hand; 11/17 00:01 Follow up: Response: No adverse reaction as6 11/16 22:49 Drug: DuoNeb Nebulize (2.5 mg - 0.5 mg) 3 ml Route: Nebulizer; 6 11/17 00:01 Follow up: Response: No adverse reaction as6 11/16 22:49 Drug: NS 0.9% IV 500 ml Route: IV; Rate: bolus; Site: right hand; as6 11/17 00:01 Follow up: Response: No adverse reaction; IV Status: Completed infusion; IV Intake: as6 500ml Medication: 11/16 20:33 VIS not applicable for this client. as6 Intake: 11/17 00:01 IV: 500ml; Total: 500ml. as6 Outcome: 00:00 Discharge ordered by . kdr 00:01 Discharged to Law Enforcement as6 00:01 Condition: stable 01:19 Discharge instructions given to patient, police, Instructed on discharge instructions, as6 follow up and referral plans. medication usage, Demonstrated understanding of instructions, follow-up care, medications, Prescriptions given X 2. 01:19 Patient left the ED. as6 Signatures: Dispatcher [employer] Olga Fang RN RN Moshe Lozada MD MD kdr Swanson, Donovan ds4 Slawson, Ashby, RN RN as6
--- NOTE | 2022-11-17 00:01 | EDPHYS ---
Physician Documentation [facility] Name: Howard Clarke Age: 57 yrs Sex: Female : 1965 Arrival Date: 11/16/2022 Time: 20:24 Bed 23 Private MD: ED Physician Moshe Montes HPI: 11/17 03:24 This 57 yrs old Black Female presents to ER via Law Enforcement with unknown complaint. kdr 03:24 This 57 yrs old Black Female presents to ER via Law Enforcement with complaints of kdr Hypertension and shortness of breath. 03:24 Patient states that she did not take her blood pressure medicine today that she is kdr normally compliant. The patient was noted to be hypertensive by EMS/police and was subsequently brought to the ED for medical clearance. Patient has a history of asthma and upper respiratory issues. She is not taking any inhaler today. She denies any headache or chest pain or other signs of endorgan damage at this time. Patient is otherwise stable and not requiring emergent intervention beyond the fact that her blood pressure is consistently greater than 200 systolic.. Onset: The symptoms/episode began/occurred today. Severity of symptoms: At their worst the symptoms were moderate severe in the emergency department the symptoms are unchanged. It is unknown whether or not the patient has had similar symptoms in the past. The patient has not recently seen a physician. Historical: - Allergies: 11/16 20:28 No Known Allergies; as6 - PMHx: 20:28 Bipolar disorder; Depression; Hypertension; Asthma; as6 - PSHx: 20:28 None; as6 - Immunization history:: Client reports having NOT received the Covid vaccine. - Social history:: Smoking status: Patient denies any tobacco usage or history of. ROS: 11/17 03:24 Constitutional: Negative for fever, chills, and weight loss, Eyes: Negative for injury, kdr pain, redness, and discharge, ENT: Negative for injury, pain, and discharge, Neck: Negative for injury, pain, and swelling, Cardiovascular: Negative for chest pain, palpitations, and edema, Abdomen/GI: Negative for abdominal pain, nausea, vomiting, diarrhea, and constipation, Back: Negative for injury and pain, : Negative for injury, bleeding, discharge, and swelling, MS/Extremity: Negative for injury and deformity, Skin: Negative for injury, rash, and discoloration, Neuro: Negative for headache, weakness, numbness, tingling, and seizure activity. Psych: Negative for depression, anxiety, suicide ideation, homicidal ideation, and hallucinations, Allergy/Immunology: Negative for hives, rash, and allergies, Endocrine: Negative for neck swelling, polydipsia, polyuria, polyphagia, and marked weight changes, Hematologic/Lymphatic: Negative for swollen nodes, abnormal bleeding, and unusual bruising. Respiratory: Positive for cough, with no reported sputum, shortness of breath, on exertion. wheezing, inspiratory. Exam: 03:24 Constitutional: This is a well developed, well nourished patient who is awake, alert, kdr and in no acute distress. Head/Face: Normocephalic, atraumatic. Eyes: Pupils equal round and reactive to light, extra-ocular motions intact. Lids and lashes normal. Conjunctiva and sclera are non-icteric and not injected. Cornea within normal limits. Periorbital areas with no swelling, redness, or edema. Neck: Trachea midline, no thyromegaly or masses palpated, and no cervical lymphadenopathy. Supple, full range of motion without nuchal rigidity, or vertebral point tenderness. No Meningismus. Chest/axilla: Normal chest wall appearance and motion. Nontender with no deformity. No lesions are appreciated. Cardiovascular: Regular rate and rhythm with a normal S1 and S2. No gallops, murmurs, or rubs. Normal PMI, no JVD. No pulse deficits. Abdomen/GI: Soft, non-tender, with normal bowel sounds. No distension or tympany. No guarding or rebound. No evidence of tenderness throughout. Back: No spinal tenderness. No costovertebral tenderness. Full range of motion. Skin: Warm, dry with normal turgor. Normal color with no rashes, no lesions, and no evidence of cellulitis. MS/ Extremity: Pulses equal, no cyanosis. Neurovascular intact. Full, normal range of motion. Neuro: Awake and alert, GCS 15, oriented to person, place, time, and situation. Cranial nerves II-XII grossly intact. Motor strength 5/5 in all extremities. Sensory grossly intact. Cerebellar exam normal. Normal gait. Psych: Awake, alert, with orientation to person, place and time. Behavior, mood, and affect are within normal limits. 03:24 Respiratory: the patient does not display signs of respiratory distress, Respirations: prolonged exhalation, that is mild, shallow respirations, that is mild, Breath sounds: + upper airway congestion. wheezing: Vital Signs: 11/16 20:28 BP 212 / 131; Pulse 75; Resp 18 S; Temp 97.6(O); Pulse Ox 100% on R/A; Weight 89.81 kg as6 (R); Height 5 ft. 1 in. (R); Pain 8/10; 22:11 BP 185 / 119; Pulse 101; Resp 18 S; Pulse Ox 100% on R/A; as6 22:50 BP 99 / 59; Pulse 55; Resp 15 S; Pulse Ox 100% on 6 lpm Nebulizer Mask; as6 23:43 BP 137 / 81; Pulse 69; Resp 18 S; Pulse Ox 98% on R/A; as6 11/17 00:45 BP 128 / 82; Pulse 74; Resp 18 S; Pulse Ox 96% on R/A; as6 11/16 20:28 Body Mass Index 37.41 (89.81 kg, 154.94 cm) as6 11/16 20:28 Pain Scale: Adult as6 MDM: 00:00 Patient medically screened. kdr 03:24 Data reviewed: vital signs, nurses notes, lab test result(s), radiologic studies. kdr 03:24 ED course: Patient steadily improved with the interventions given. kdr 11/16 20:33 Order name: Basic Metabolic Panel; Complete Time: 23:58 as11/16 20:33 Order name: CBC with Diff; Complete Time: 23:58 as11/16 20:33 Order name: LFT's; Complete Time: 23:58 as11/16 20:33 Order name: Magnesium; Complete Time: 23:58 as11/16 20:33 Order name: NT PRO-BNP; Complete Time: 23:58 as11/16 20:33 Order name: PT-INR; Complete Time: 23:58 11/16 20:33 Order name: Troponin HS; Complete Time: 23:58 as11/16 20:33 Order name: XRAY Chest (1 view); Complete Time: 23:58 as6 11/16 20:33 Order name: EKG; Complete Time: 20:35 as6 11/16 20:33 Order name: Cardiac monitoring; Complete Time: 21:01 11/16 20:33 Order name: EKG - Nurse/Tech; Complete Time: 20:42 11/16 20:33 Order name: IV Saline Lock; Complete Time: 21:01 11/16 20:33 Order name: Labs collected and sent; Complete Time: 21:01 11/16 20:33 Order name: O2 Per Protocol; Complete Time: 20:34 11/16 20:33 Order name: O2 Sat Monitoring; Complete Time: 20:33 11/17 00:05 Order name: EKG Strip; Complete Time: 00:14 kdr Administered Medications: 11/16 21:34 Drug: Lisinopril PO 20 mg Route: PO; 11/17 00:01 Follow up: Response: No adverse reaction 11/16 21:34 Drug: hydrALAZINE IVP 10 mg Route: IVP; Site: right hand; 11/17 00:01 Follow up: Response: No adverse reaction 11/16 22:06 Drug: hydrALAZINE IVP 20 mg {Note: bp 184/119.} Route: IVP; Site: right hand; 11/17 00:01 Follow up: Response: No adverse reaction 11/16 22:49 Drug: DuoNeb Nebulize (2.5 mg - 0.5 mg) 3 ml Route: Nebulizer; 11/17 00:01 Follow up: Response: No adverse reaction 11/16 22:49 Drug: NS 0.9% IV 500 ml Route: IV; Rate: bolus; Site: right hand; 11/17 00:01 Follow up: Response: No adverse reaction; IV Status: Completed infusion; IV Intake: as6 500ml Disposition Summary: 11/17/22 00:00 Discharge Ordered Location: Home kdr Problem: an ongoing problem kdr Symptoms: have improved kdr Condition: Stable kdr Diagnosis - Mild persistent asthma kdr - Hypertensive heart disease without heart failure kdr Followup: kdr - With: Private Physician - When: 2 - 3 days - Reason: If symptoms return, Further diagnostic work-up, Recheck today's complaints, Continuance of care, Re-evaluation by your physician Discharge Instructions: - Discharge Summary Sheet kdr - Asthma Attack kdr - Hypertension, Adult, [id number] kdr - Asthma Attack Prevention, Adult kdr Forms: - Medication Reconciliation Form kdr - Thank You Letter kdr Prescriptions: - albuterol sulfate 90 mcg/actuation Inhalation HFA Aerosol Inhaler - inhale 2 inhalation by INHALATION route every 4 to 6 hours As needed as needed kdr for bronchospasm; administer via ventilator; 2 unit; Refills: 0, Product Selection Permitted - Lisinopril 20 mg Oral Tablet - take 1 tablet by ORAL route once daily; 20 tablet; Refills: 0, Product kdr Selection Permitted Signatures: Dispatcher [employer] Olga Fang, RN RN Moshe Lozada MD MD kdr Slawson, Ashby, RN RN as6
[2022-11-17 03:04] VITALS: TEMP 98.1
[2022-11-17 03:06] VITALS: BP 101/61; O2SAT 100
--- NOTE | 2022-11-18 04:54 | EKG ---
Test Date: 2022-11-17 Test Time: 00:12:45 Methods Examiner: MEASUREMENT RESULTS: Intervals: Rate: 72 DC: 122 QRSD: 100 QT: 414 QTc: 453 Bruce: P: 50 DC: 122 QRS: 81 T: 68 INTERPRETIVE STATEMENTS: Normal sinus rhythm Minimal voltage criteria for LVH, may be normal variant Borderline ECG Compared to ECG 11/16/2022 20:39:29 Left ventricular hypertrophy now present Electronically Signed On 11-18-22 04:52:10 CDT by Tim Sparks
--- NOTE | 2022-11-18 04:55 | EKG ---
Test Date: 2022-11-16 Test Time: 20:39:29 Perlite Grinder: KIKE MEASUREMENT RESULTS: Intervals: Rate: 63 AR: 134 QRSD: 94 QT: 412 QTc: 421 [place]: P: 37 AR: 134 QRS: 75 T: 61 INTERPRETIVE STATEMENTS: Normal sinus rhythm Normal ECG Compared to ECG 01/13/2021 21:30:30 Atrial abnormality no longer present Electronically Signed On 11-18-22 04:52:18 CDT by Tim Sparks
== END 2022-11-17 01:19 | disposition home or self-care (01) ==
LOC: ER 20:24
DX: I11.9 Hypertensive heart disease without heart failure (principal); J45.30 Mild persistent asthma, uncomplicated
CPT/HCPCS: 36415; 71045; 80048; 80076; 83735; 83880; 84484; 85025; 85610; 93005; 94640; 96361; 96374; 99285; J0360; J7040; J7613; J7644

== ENCOUNTER 2024-02-29 17:05 | Emergency (ER) | payer OTHER ==
--- OUTSIDE RECORDS SUMMARY | 2024-02-29 17:08 | XMS REPORT | Continuity of Care Document ---
Author Name Unknown Address [address] [facility] Address [address] [place] [address] Care Team Providers Care Carbon Brush Maker Name Role Phone Veto Almonte Attending Clinician Unavailable Veto Almonte Attending Clinician Unavailable Veto Almonte Admitting Clinician Unavailable Allergies, Adverse Reactions, Alerts Allergy Name Allergy Type Status Severity Reaction(s) Onset Date Inactive Date Treating Clinician Comments Source No Known Allergie s Drug Active [facility] Vital Signs Vital Name Observation Time Observation Value Comments S ource Height/Length Measured 2020-04-10 00:56:10 Height/Length Measured 2021-08-12 [...] cm Weight Dosing 2021-08-12 10:01:44 88.00 kg Encounters Start Date/Time End Date/Time Encounter Type Admission Type Attending [facility] Care Facility Care Department Encounter ID Source 2020-04-09 15:30:00 Inpatient 1 Veto Almonte Michael [facility] PSY [id number] [facility] 2022-10-21 14:01:11 2022-10-21 14:01:11 Outpatient [facility] [id number] Aamir Mccabe Feliz 2020-04-09 15:30:00 2020-04-15 11:50:00 Inpatient 1 Veto Almonte Michael [facility] PSY [id number] [facility] 2019-11-11 04:25:00 2019-11-11 04:25:00 Emergency [facility] YANELY [id number] [facility] Results Test Description Test Time Test Comments Results Result Co mments Source Comprehensive Metabolic [id number] 17:18:23* Test Item Value Reference Range Interpretation Comme nts Sodium Level (test code = So dium Level) 140.0 mmol/L 136.0-145.0 Potassium Level (test code = Potassium Level) 4.30 mmol/L 3.50-5.10 Chloride Level (test code = Chloride Level) 109.0 mmol/L 98.0-107.0 H CO2 (test code = CO2) 26 mmol/L 20-31 Anion Gap (test code = Anion Gap) 4.8 mmol/L 5.0-15.0 L BUN (test code = BUN) 13 mg/dL 9-23 Creatinine Level (test code = Creatinine Level) 1.00 mg/dL 0.55-1.02 BUN/Creat Ratio (test code = BUN/Creat Ratio) 13.0 ratio 10.0-20.0 Glucose Level (test code = Glucose Level) 98 mg/dL 74-106 Calcium Level (test code = Calcium Level) 9.1 mg/dL 8.3-10.6 Alk Phos (test code = Alk Phos) 122 U/L 46-116 H Bilirubin Total (test code = Bilirubin Total) 0.2 mg/dL 0.2-1.1 Albumin Level (test code = Albumin Level) 4.1 g/dL 3.2-4.8 Protein Total (test code = Protein Total) 6.4 g/dL 5.7-8.2 ALT (test code = ALT) 13 U/L 10-49 AST (test code = AST) 20 U/L <=34 Globulin (test code = Globulin) 2.3 g/dL 2.3-3.5 A/G Ratio (test code = A/G Ratio) 1.8 g/dL 0.8-2.0 Hemolysis (test code = Hemolysis) 0 g/dL 1-2 Icterus (test code = Icterus) 0 g/dL 1-2 Lipemia (test code = Lipemia) 0 g/dL 1-2 Comprehensive Metabolic [id number] 17:18:23* Test Item Value Reference Range Interpretation Comme nts Sodium Level (test code = Sodium Level) 140.0 mmol/L 136.0-145.0 Potassium Level (test code = Potassium Level) 4.30 mmol/L 3.50-5.10 Chloride Level (test code = Chloride Level) 109.0 mmol/L 98.0-107.0 H CO2 (test code = CO2) 26 mmol/L 20-31 Anion Gap (test code = Anion Gap) 4.8 mmol/L 5.0-15.0 L BUN (test code = BUN) 13 mg/dL 9-23 Creatinine Level (test code = Creatinine Level) 1.00 mg/dL 0.55-1.02 BUN/Creat Ratio (test code = BUN/Creat Ratio) 13.0 ratio 10.0-20.0 Glucose Level (test code = Glucose Level) 98 mg/dL 74-106 Calcium Level (test code = Calcium Level) 9.1 mg/dL 8.3-10.6 Alk Phos (test code = Alk Phos) 122 U/L 46-116 H Bilirubin Total (test code = Bilirubin Total) 0.2 mg/dL 0.2-1.1 Albumin Level (test code = Albumin Level) 4.1 g/dL 3.2-4.8 Protein Total (test code = Protein Total) 6.4 g/dL 5.7-8.2 ALT (test code = ALT) 13 U/L 10-49 AST (test code = AST) 20 U/L <=34 Globulin (test code = Globulin) 2.3 g/dL 2.3-3.5 A/G Ratio (test code = A/G Ratio) 1.8 g/dL 0.8-2.0 eGFR AA (test code = eGFR AA) >60 mL/min/1.73 m2 >=60 eGFR (estimated Glomerular Filtration Rate) is an estimated value, calculated from the patient's serum creatinine using the MDRD equation. It is NOT the patient's actual GFR. The eGFR provides a more clinically useful measure of kidney disease than serum creatinine alone.This calculation takes sex and race into account, if the information is provided. If the race is not provided, and the patient is -[place], multiply by 1.212. If sex is not provided, and the patient is female, multiply by 0.742. Results for patients <18 years of age have not been validated by the MDRD study and should be interpreted with caution. eGFR Result Interpretation:eGFR > or = 60 is in the Normal RangeeGFR < 60 may mean kidney diseaseeGFR < 15 may mean kidney failure Ranges recommended by the National Kidney Foundation, http://nkdep.nih.gov Hemolysis (test code = Hemolysis) 0 g/dL 1-2 Icterus (test code = Icterus) 0 g/dL 1-2 Lipemia (test code = Lipemia) 0 g/dL 1-2 Alcohol [id number] 17:18:23* Test Item Value Reference Range Interpretation Comme nts Ethanol Level (test code = Ethanol Level) 4.9 mg/dL N The pharmacologi dario response to blood alcohol levels may vary from individual to individual. The fatal concentration has been reported to be >400 mg/dl. Comprehensive Metabolic [id number] 17:18:23* Test Item Value Reference Range Interpretation Comme nts Sodium Level (test code = Sodium Level) 140.0 mmol/L 136.0-145.0 Potassium Level (test code = Potassium Level) 4.30 mmol/L 3.50-5.10 Chloride Level (test code = Chloride Level) 109.0 mmol/L 98.0-107.0 H CO2 (test code = CO2) 26 mmol/L 20-31 Anion Gap (test code = Anion Gap) 4.8 mmol/L 5.0-15.0 L BUN (test code = BUN) 13 mg/dL 9-23 Creatinine Level (test code = Creatinine Level) 1.00 mg/dL 0.55-1.02 BUN/Creat Ratio (test code = BUN/Creat Ratio) 13.0 ratio 10.0-20.0 Glucose Level (test code = Glucose Level) 98 mg/dL 74-106 Calcium Level (test code = Calcium Level) 9.1 mg/dL 8.3-10.6 Alk Phos (test code = Alk Phos) 122 U/L 46-116 H Bilirubin Total (test code = Bilirubin Total) 0.2 mg/dL 0.2-1.1 Albumin Level (test code = Albumin Level) 4.1 g/dL 3.2-4.8 Protein Total (test code = Protein Total) 6.4 g/dL 5.7-8.2 ALT (test code = ALT) 13 U/L 10-49 AST (test code = AST) 20 U/L <=34 Globulin (test code = Globulin) 2.3 g/dL 2.3-3.5 A/G Ratio (test code = A/G Ratio) 1.8 g/dL 0.8-2.0 eGFR AA (test code = eGFR AA) >60 mL/min/1.73 m2 >=60 eGFR (estimated Glomerular Filtration Rate) is an estimated value, calculated from the patient's serum creatinine using the MDRD equation. It is NOT the patient's actual GFR. The eGFR provides a more clinically useful measure of kidney disease than serum creatinine alone.This calculation takes sex and race into account, if the information is provided. If the race is not provided, and the patient is -[place], multiply by 1.212. If sex is not provided, and the patient is female, multiply by 0.742. Results for patients <18 years of age have not been validated by the MDRD study and should be interpreted with caution. eGFR Result Interpretation:eGFR > or = 60 is in the Normal RangeeGFR < 60 may mean kidney diseaseeGFR < 15 may mean kidney failure Ranges recommended by the National Kidney Foundation, http://nkdep.nih.gov eGFR Non-AA (test code = eGFR Non-AA) 58.22 mL/min/1.73 m2 >=60.00 L eGFR (estimated Glomerular Filtration Rate) is an estimated value, calculated from the patient's serum creatinine using the MDRD equation. It is NOT the patient's actual GFR. The eGFR provides a more clinically useful measure of kidney disease than serum creatinine alone.This calculation takes sex and race into account, if the information is provided. If the race is not provided, and the patient is -[place], multiply by 1.212. If sex is not provided, and the patient is female, multiply by 0.742. Results for patients <18 years of age have not been validated by the MDRD study and should be interpreted with caution. eGFR Result Interpretation:eGFR > or = 60 is in the Normal RangeeGFR < 60 may mean kidney diseaseeGFR < 15 may mean kidney failure Ranges recommended by the National Kidney Foundation, http://nkdep.nih.gov Hemolysis (test code = Hemolysis) 0 g/dL 1-2 Icterus (test code = Icterus) 0 g/dL 1-2 Lipemia (test code = Lipemia) 0 g/dL 1-2 HCG Qualitative [id number] 17:07:59* Test Item Value Reference Range Interpretation Comme nts hCG Ur (test code = hCG Ur) Negative If the result is "Negative" in patients suspected to be , recommend retest with a sample obtained 48 to 72 hours later, or by ordering a quantitative assay. If the result is "Borderline" testing should be repeated in 48 to 72 hours. Lot # (test code = Lot #) [id number] N Expiration Dt (test code = Expiration Dt) 03/25/2021 N Neg Control (test code = Neg Control) Negative Pos Control (test code = Pos Control) Positive Internal QC (test code = Internal QC) Acceptable Complete Blood Count with [id number] 17:01:29* Test Item Value Reference Range Interpretation Comme nts WBC (test code = WBC) 6.1 x10 4.4-10.5 RBC (test code = RBC) 4.19 x10 3.75-5.20 Hgb (test code = Hgb) 12.9 g/dL 12.2-14.8 MCV (test code = MCV) 97.40 fL 80.00-100.00 Hct (test code = Hct) 40.8 % 36.5-44.4 MCHC (test code = MCHC) 31.60 g/dL 32.00-37.50 L MCH (test code = MCH) 30.8 pg 27.0-32.5 RDW CV (test code = RDW CV) 13.1 % 11.5-14.5 Platelets (test code = Platelets) 195.0 x10 140.0-440.0 MPV (test code = MPV) 11.9 fL N Slide Review (test code = Slide Review) Auto Auto Result crea jerilyn by [id number] nRBC (test code = nRBC) 0 N NRBC Abs (test code = NRBC Abs) 0.00 x10 N Automated [id number] 17:01:29* Test Item Value Reference Range Interpretation Comme nts Neutro Auto (test code = Sena tro Auto) 42.9 % 36.0-70.0 Lymph Auto (test code = Lymph Auto) 44.7 % 12.0-44.0 H [place] Auto (test code = [place] Auto) 7.5 % 0.0-11.0 Eos, Auto (test code = Eos, Auto) 4.1 % 0.0-7.0 Basophil Auto (test code = B asophil Auto) 0.5 % 0.0-2.0 Neutro Absolute (test code = Neutro Absolute) 2.6 x10 1.6-7.4 Lymph Absolute (test code = Lymph Absolute) 2.73 x10 .50-4.60 [place] Absolute (test code = M josh Absolute) .46 x10 .00-1.20 Eos Absolute (test code = Eo s Absolute) 0.25 x10 0.00-0.74 Baso Absolute (test code = B aso Absolute) 0.03 x10 0.00-0.21 IG [id number] 17:01:29* Test Item Value Reference Range Interpretation Comme nts IG (test code = IG) 0.3 % 0.0-5.0 IG Abs (test code = IG Abs) 0 x10 N Urinalysis with Microscopic if [id number] 16:52:48* Test Item Value Reference Range Interpretation Comme nts UA Color (test code = UA Color) YELLO Yellow UA Appear (test code = UA Appear) CLEAR Clear UA pH (test code = UA pH) 6.5 N UA Spec Grav (test code = UA Spec Grav) 1.030 1.001-1.035 UA Glucose (test code = UA Glucose) NEG Negative UA Ketones (test code = UA Ketones) NEG Negative UA Blood (test code = UA Blood) NEG Negative UA Protein (test code = UA Protein) NEG Negative UA Bili (test code = UA Bili) NEG Negative UA Urobilinogen (test code = UA Urobilinogen) .2 mg/dL >0.2 UA Nitrite (test code = UA Nitrite) NEG Negative UA Leuk Est (test code = UA Leuk Est) NEG Negative UA Micro Ind? (test code = U A Micro Ind?) Not Indicated Not Indicated RPR [id number] 17:29:09* Test Item Value Reference Range Interpretation Comme nts RPR Qual (test code = RPR Qual) Non-Reactive Non-Reactive Reactive Control (test code = Reactive Control) Reactive Weak Reactive Control (test code = Weak Reactive Control) Weak Reactive Non-Reactive Control (test c ode = Non-Reactive Control) Non-Reactive Lot # (test code = Lot #) [id number] N Expiration Dt (test code = Expiration Dt) 07.25.20 N Lipid [id number] 07:45:20* Test Item Value Reference Range Interpretation Comme nts Cholesterol Total (test code = Cholesterol Total) 173 mg/dL 0-200 RISK OF HEART DISEASEPublished by [place] Heart Association Analyte Optimal Borderline Increased RiskCHOL <200 200-239 >240TRIG <150 150-199 >200HDL Male >60 <40HDL Female >60 <50LDL <100 130-159 >160LDL Near optimal is 100-129 Triglycerides (test code = Triglycerides) 105 mg/dL 9-200 HDL (test code = HDL) 55 mg/dL 50-60 LDL (test code = LDL) 97 mg/dL 0-130 The equation being used in this calculation is LDL = (Chol - HDL) - (Trig / 5) VLDL (test code = VLDL) 21 mg/dL 5-40 The equation sidra ng used in this calculation is VLDL = Trig / 5 Chol/HDL (test code = Chol/HDL) 3.1 ratio 0.0-4.4 LDL/HDL Ratio (test code = LDL/HDL Ratio) 2 N The equati on being used in this calculation is LDL/HDL Ratio=LDL Calc/HDL Chol Thyroid Stimulating [id number] 07:45:20* Test Item Value Reference Range Interpretation Comme nts TSH (test code = TSH) 1.250 mIU/mL 0.270-4.200 Hemoglobin [id number] 07:01:24* Test Item Value Reference Range Interpretation Comme nts Hemoglobin A1c (test code = Hemoglobin A1c) 5.5 % 4.8-5.9 Non Diabetic 4.8-5.9%Diabetic <7.0%
[2024-02-29] MEDS ORDERED: IPRATROPIUM BROM 0.5MG/2.5ML ONE (17:33)
[2024-02-29] MEDS ORDERED: ALBUTEROL 2.5 MG/3 ML NEB SOL ONE (17:33)
[2024-02-29] MEDS ORDERED: dexAMETHasone 10 MG/ML VIAL ONE (17:34)
--- NOTE | 2024-02-29 19:40 | ER ---
Nurse's Notes [facility] Name: Howard Clarke Age: 58 yrs Sex: Female : 1965 Arrival Date: 02/29/2024 Time: 17:05 Bed 11 Private MD: Diagnosis: Unspecified asthma with (acute) exacerbation Presentation: 02/28 17:28 Chief complaint: Patient states: Shortness of breath and wheezing for 3 days, inhalers nj1 not working. Coronavirus screen: Vaccine status: Patient reports being unvaccinated. Ebola Screen: Patient denies travel to an Ebola-affected area in the 21 days before illness onset. Initial Sepsis Screen: Does the patient meet any 2 criteria? No. Patient's initial sepsis screen is negative. Does the patient have a suspected source of infection? No. Patient's initial sepsis screen is negative. Risk Assessment: Do you want to hurt yourself or someone else? Patient reports no desire to harm self or others. Onset of symptoms was February 26, 2024. 17:28 Method Of Arrival: Ambulatory [facility] 17:28 Acuity: OBDULIO 2 tn1 Triage Assessment: 17:50 Respiratory: Reports shortness of breath on exertion Onset: The symptoms/episode cm10 began/occurred yesterday, the patient has mild shortness of breath. 17:50 General: Appears in no apparent distress. comfortable, Behavior is calm, cooperative. cm10 Historical: - Allergies: 17:30 No Known Allergies; nj1 - PMHx: 17:30 Asthma; Bipolar disorder; Depression; Hypertension; nj1 - Immunization history:: Client reports having NOT received the Covid vaccine. - Infectious Disease History:: Denies. - Social history:: Smoking status: Patient denies any tobacco usage or history of. Screenin:34 [facility] ED Fall Risk Assessment (Adult) History of falling in the last 3 months, cm10 including since admission No falls in past 3 months (0 pts) Confusion or Disorientation No (0 pts) Intoxicated or Sedated No (0 pts) Impaired Gait No (0 pts) Mobility Assist Device Used No (0 pt) Altered Elimination No (0 pt) Score/Fall Risk Level 0 - 2 = Low Risk Oriented to surroundings, Maintained a safe environment, Hourly rounding (assess needs \T\ fall precautionary measures) done. Abuse screen: Denies threats or abuse. Denies injuries from another. Nutritional screening: No deficits noted. Tuberculosis screening: No symptoms or risk factors identified. Assessment: 17:45 General: Appears in no apparent distress. comfortable, Behavior is calm, cooperative. cm10 Pain: Denies pain. Neuro: No deficits noted. Level of Consciousness is awake, alert, obeys commands, Oriented to person, place, time, situation, Appropriate for age. Respiratory: Airway is patent Trachea Respiratory effort is even, unlabored, Respiratory pattern is regular, symmetrical, Breath sounds with wheezes bilaterally. Derm: No deficits noted. Skin is intact, Skin is pink, warm \T\ dry. 19:33 Reassessment: Patient appears in no apparent distress at this time. Patient and/or cm10 family updated on plan of care and expected duration. Pain level reassessed. Patient is alert, oriented x 3, equal unlabored respirations, skin warm/dry/pink. Patient states feeling better. Patient states symptoms have improved. Vital Signs: 17:28 BP 239 / 117; Pulse 60; Resp 20; Temp 97(TE); Pulse Ox 93% on R/A; Weight 88.45 kg; nj1 Height 5 ft. 4 in. ; 18:30 BP 204 / 117; Pulse 57; Resp 18; Pulse Ox 96% on R/A; cm10 19:00 BP 197 / 114; Pulse 57; Resp 16; Pulse Ox 100% on R/A; cm10 17:28 Body Mass Index 33.47 (88.45 kg, 162.56 cm) tn1 ED Course: 17:10 Patient arrived in ED. im 17:11 April Garcia FNP-C is [facility]. kb 17:11 Chito Franco MD is Attending Physician. kb 17:30 Triage completed. nj1 17:30 Arm band placed on left wrist. nj1 17:32 Calista Holland, SANGITA is Primary Nurse. cm10 17:50 Initial Neb Treatment Given as ordered Patient was instructed and evaluated on cm10 procedure Patient tolerated procedure well without adverse effect. 19:51 Patient has correct armband on for positive identification. Provided Education on: cm10 Follow-up instructions. 19:52 No provider procedures requiring assistance completed. Patient did not have IV access cm10 during this emergency room visit. Administered Medications: 17:50 Drug: DuoNeb Nebulize (3:1) (2.5 mg - 0.5 mg) 3 ml Nebulizer once Route: Nebulizer; cm10 19:33 Follow up: Response: No adverse reaction; Marked relief of symptoms cm10 17:50 Drug: Dexamethasone IM 10 mg IM once Route: IM; Site: right gluteus; cm10 19:33 Follow up: Response: No adverse reaction; Marked relief of symptoms cm10 19:51 Drug: predniSONE PO 40 mg PO once Route: PO; cm10 19:51 Follow up: Response: Medication administered at discharge. cm10 Medication: 19:54 VIS not applicable for this client. cm10 Outcome: 19:39 Discharge ordered by . kb 19:52 Discharged to home ambulatory, cm10 19:52 Condition: good 19:52 Discharge instructions given to patient, Instructed on discharge instructions, follow up and referral plans. medication usage, Demonstrated understanding of instructions, follow-up care, medications, Prescriptions given X 2, 19:54 Patient left the ED. cm10 Signatures: April Garcia, MARYANN-C PREMIX OPERATOR CONCENTRATE-Belen Montgomery RN RN nj1 Anahi Cunha Clarissa, RN RN cm10 Corrections: (The following items were deleted from the chart) 17:30 17:28 Pulse 60bpm; Resp 20bpm; Pulse Ox 93% RA; Temp 97F Temporal; 88.45 kg; Height 5 nj1 ft. 4 in.; BMI: 33.4; nj1
--- NOTE | 2024-02-29 19:40 | EDPHYS ---
Physician Documentation [facility] Name: Howard Clarke Age: 58 yrs Sex: Female : 1965 Arrival Date: 02/29/2024 Time: 17:05 Bed 11 Private MD: ED Physician Chito Franco HPI: 02/28 20:47 This 58 yrs old Black Female presents to ER via Ambulatory with complaints of Shortness kb Of Breath. 20:47 Patient is a 58-year-old female with a history of asthma who presents for asthma kb exacerbation that started 3 days ago. States she has been using her albuterol inhaler without relief. Reports shortness of breath and wheezing got worse today after moving furniture. Denies fever, cough.. Historical: - Allergies: 17:30 No Known Allergies; nj1 - PMHx: 17:30 Asthma; Bipolar disorder; Depression; Hypertension; nj1 - Immunization history:: Client reports having NOT received the Covid vaccine. - Infectious Disease History:: Denies. - Social history:: Smoking status: Patient denies any tobacco usage or history of. ROS: 20:47 Constitutional: As per HPI kb Exam: 20:47 Constitutional: This is a well developed, well nourished patient who is awake, alert, kb and in no acute distress. Head/Face: Normocephalic, atraumatic. ENT: Moist Mucous membranes Cardiovascular: Regular rate Abdomen/GI: Soft, non-tender. No distention Skin: Warm, dry with normal turgor. Normal color. MS/ Extremity: Pulses equal, no cyanosis. Neurovascular intact. Full, normal range of motion. Neuro: Awake and alert, GCS 15, oriented to person, place, time, and situation. Moves all extremities. Normal gait. 20:47 Respiratory: mild respiratory distress is noted, Respirations: labored breathing, that is mild, Breath sounds: wheezing: expiratory that is moderate, is heard diffusely, Vital Signs: 17:28 BP 239 / 117; Pulse 60; Resp 20; Temp 97(TE); Pulse Ox 93% on R/A; Weight 88.45 kg; nj1 Height 5 ft. 4 in. ; 18:30 BP 204 / 117; Pulse 57; Resp 18; Pulse Ox 96% on R/A; cm10 19:00 BP 197 / 114; Pulse 57; Resp 16; Pulse Ox 100% on R/A; cm10 17:28 Body Mass Index 33.47 (88.45 kg, 162.56 cm) nj1 MDM: 17:11 Patient medically screened. kb 20:45 Differential diagnosis: asthma, Bronchitis Chronic Obstructive Pulmonary Disease kb pneumonia. Antibiotic administration: Not indicated. Data reviewed: vital signs, nurses notes. Test considered but Not performed: X-ray: Chest x-ray considered but patient has had these exact same symptoms in the past due to asthma, wheezing is diffuse bilaterally, afebrile and nontoxic in appearance.. Counseling: I had a detailed discussion with the patient and/or guardian regarding the historical points, exam findings, and any diagnostic results supporting the discharge/admit diagnosis, the need for outpatient follow up, a family practitioner, to return to the emergency department if symptoms worsen or persist or if there are any questions or concerns that arise at home. ED course: Patient is feeling much better after breathing treatment and steroids. States she is ready to go home. On reexamination, wheezing is decreased bilaterally, respirations even and unlabored. Oxygen saturation 100% on room air. Patient reports she does have a neb machine at home, albuterol solution prescribed as well as steroids. Antibiotics considered but not indicated in this case.. Administered Medications: 17:50 Drug: DuoNeb Nebulize (3:1) (2.5 mg - 0.5 mg) 3 ml Nebulizer once Route: Nebulizer; cm10 19:33 Follow up: Response: No adverse reaction; Marked relief of symptoms cm10 17:50 Drug: Dexamethasone IM 10 mg IM once Route: IM; Site: right gluteus; cm10 19:33 Follow up: Response: No adverse reaction; Marked relief of symptoms cm10 19:51 Drug: predniSONE PO 40 mg PO once Route: PO; cm10 19:51 Follow up: Response: Medication administered at discharge. cm10 Disposition Summary: 02/29/24 19:39 Discharge Ordered Notes: Location: Home kb Condition: Stable kb Diagnosis - Unspecified asthma with (acute) exacerbation kb Followup: kb - With: Emergency Department - When: As needed - Reason: Worsening of condition Followup: kb - With: Private Physician - When: 2 - 3 days - Reason: Recheck today's complaints, Continuance of care, Re-evaluation by your physician Discharge Instructions: - Discharge Summary Sheet kb - Asthma, Adult, [id number] kb Forms: - Medication Reconciliation Form kb - Antibiotic Education kb - Prescription Opioid Use kb - Patient Portal Instructions kb - Leadership Thank You Letter kb Prescriptions: - Prednisone 20 mg Oral Tablet - take 1 tablet ORAL route once daily for 5 days; 5 tablet; Refills: 0, Product kb Selection Permitted - Albuterol Sulfate 2.5 mg /3 mL (0.083 %) Inhalation Solution for Nebulization - inhale 1 unit NEBULIZATION route every 8 hours As needed; 1 Unspecified; kb Refills: 0, Product Selection Permitted Signatures: April Garcia, JERICHOC Belen Bettencourt RN RN nj1 Calista Holland RN RN cm10
[2024-02-29] MEDS ORDERED: predniSONE 20 MG TAB ONE (19:41)
[2024-03-01 06:57] VITALS: TEMP 97
[2024-03-01 06:59] VITALS: BP 197/114; O2SAT 100
== END 2024-02-29 19:54 | disposition home or self-care (01) ==
LOC: ER 17:05
DX: J45.901 Unspecified asthma with (acute) exacerbation (principal)
CPT/HCPCS: 94640; 96372; 99284; J7512; J7613; J7644; J1100